=== PATIENT | female | born 1955 | race Caucasian/White ===

== ENCOUNTER 2020-11-14 09:13 | Inpatient (IN) | payer BC, OTHER ==
[~2020-11-14] VITALS: Ht 157.5 cm; Wt 105.7 kg
--- NOTE | ~2020-11-14 | O ---
[facility] [place] [address] OPERATIVE REPORT Name: BEKAH GARCIA Room #: 440-P ADM IN M.R.#: [id number] Admission: 11/14/20 Attend Phys: Tyelr Cabral MD Discharge: Date of : 57 Report #: [id number] THIS REPORT FOR: cc: FAM - No family physician/PCP FAM - No family physician/PCP Tyler Cabral MD ~ DATE OF SERVICE: 11/17/2020 PREOPERATIVE DIAGNOSIS: Right septic ankle and subtalar arthritis. POSTOPERATIVE DIAGNOSIS: Right septic ankle and subtalar arthritis. PROCEDURES: 1. Right ankle arthroscopic irrigation and debridement. 2. Right subtalar joint open irrigation and debridement. SURGEON: Dr. Tyler Cabral. ORACLE DATA WAREHOUSE DEVELOPER: Gabriela Abreu. ANESTHESIA: General. ESTIMATED BLOOD LOSS: Minimal. DRAINS: One Hemovac drain was placed. TOURNIQUET TIME: 45 minutes. DESCRIPTION OF PROCEDURE: The patient brought to the operating room where she was placed under general anesthesia. Once under adequate general anesthesia, her right lower extremity was placed into an arthroscopic thigh support. The right lower extremity was then prepped and draped in sterile manner. The extremity was elevated and tourniquet placed to 300 mmHg. The patient's previous anteromedial and anterolateral arthroscopic portals were utilized and the arthroscopic equipment was then placed. The joint appeared much blind cleaner than on her previous irrigation and debridement. 3 liters of normal saline solution were then run through the joint arthroscopically and subsequently the extremity was removed from the arthroscopic thigh support and an extension of the patient's lateral wound was made to extend to the subtalar joint. Dissection was carried down to the subtalar joint, was then opened and any hematoma from the joint was removed. A pulsatile lavage was then placed there and 3 liters of normal saline solution were run through the subtalar joint as well with the pulsatile lavage. Once complete, a medium Hemovac drain was placed into the subtalar joint. The wounds were irrigated copiously and closed with 2-0 nylon sutures in the skin. The wounds were dressed with Xeroform, [address] [address] OPERATIVE REPORT Name: RADHABEKAH Room #: 440-P [facility] IN .R.#: [id number] Admission: 11/14/20 Attend Phys: Tyler Cabral MD Discharge: Date of : 57 Report #: [id number], and sterile soft compressive dressing was placed. Tourniquet was let down approximately 45 minutes. Toes were pink and warm with good capillary refill. There were no complications from the procedure. The patient tolerated the procedure well and went to recovery room without incident. By: 1139 [id number] Tyler Cabral MD /nt
[~2020-11-14 09:13] MED LIST: ACTOS 45 MG45 M2 PO; ASA81BEC PO; ASPIRIN EC81 M1 PO; CLARITIN10 M3 PO; GLUCOPHAGE1000 MG PO; GLYBURIDE 5 MG T5 M1 PO; LIPITOR 20 MG T20 M1 PO; LISINOPRIL-HCT1 EAC1 PO; OSTEO BI-FLEX1 EAC2 PO; PROBIOTIC1 EAC7 PO; STOOL SOFTENER100 M1 PO; VISION FORMULA1 EACH PO
[2020-11-14 11:05] VITALS: BP 162/78
[2020-11-14 15:28] VITALS: BP 157/86
--- NOTE | 2020-11-14 15:33 | NUR ---
ASSESSMENT: CM REVIEWED CHART AND SPOKE WITH PATIENT AND HER BROTHER WHO IS AT THE BEDSIDE. PT IS S/P RIGHT ANKLE DEBRIDEMENT WITH SYNOVECTOMY. PT REPORTS SHE LIVES IN A HOUSE WITH HER DAUGHTER. PT REPORTS HAVING 4 STEPS TO ENTER THE HOME AND REPORTS ABOUT ANOTHER 4 STEPS WITH HANDRAILS HER BEDROOM. PT STATES SHE CAN SLEEP ON THE COUCH ON THE MAIN LEVEL IF NEEDED. PT REPORTS SHE HAS A CANE AND WALKER AT HOME TO ASSIST WITH AMBULATION. PT STATES SHE HAS NO HISTORY OF HOME HEALTH CARE OR POST ACUTE CARE. CM WILL CONTINUE TO FOLLOW TO ASSIST NEEDED.
--- NOTE | 2020-11-14 18:54 | NUR ---
PATIENT ADMIT UNIT FROM OR AT 1500. A/O X4. HADF RIGHT ANKLE I & D WITH HEMO VAC. PATIENT DENIES PAIN. ON RA. VSS. CHRISTINE KEEP MONITOR.
[2020-11-14 20:00] VITALS: BP 150/71
--- NOTE | 2020-11-15 03:37 | NUR ---
ASSUMED PT CARE AT 1900.PT C/O PAIN ON HER R ANKLE,MANAGED WITH SANJANA TO HER R ANKLE C/D/I WITH A HEMOVAC IN PLACE.PT'S O2 SAT AT START OF SHIFT WAS BELOW 90,PT WAS PUT ON 2L/NC,O2 SAT UP TO 96%.PT SLEPING ON HER BED AT THIS TIME,CALL LIGHT WITHIN REACH.
[2020-11-15 05:54] LABS: HEMOGLOBIN 9.5 gm/dL (12.0-15.0); MCH 25.8 pg (26.0-34.0); MCHC 31.9 g/dL (28.0-37.0); MCV 80.8 fL (80.0-100.0); PLATELET COUNT 464 thou/uL (150-400); RBC 3.71 mil/uL (4.20-5.00); RDW 22.2 % (10.5-14.5); WBC 5.2 thou/uL (4.0-11.0)
[2020-11-15 06:50] LABS: ALBUMIN 2.2 g/dL (3.4-5.0); CALCIUM 8.6 mg/dL (8.5-10.1); CREATININE 1.4 mg/dL (0.6-1.0); TOTAL BILIRUBIN 0.3 mg/dL (0.2-1.0); TOTAL PROTEIN 7.4 g/dL (6.4-8.2)
[2020-11-15 07:42] LABS: ABSOLUTE NEUTROPHILS 4.3 thou/uL (1.4-8.2); ANISOCYTOSIS 2+; OVALOCYTES FEW; TEARDROPS OCCASIONAL
[2020-11-15 07:45] VITALS: BP 141/87
--- NOTE | 2020-11-15 09:48 | NUR ---
Assumed care of pt at 0700. Pt a&ox4. Dressing c/d/i. Hemovac drain in place. Minimal output. MRI ordered this am. Bilateral LE edema. IV antibiotics infusing. Diet advanced. Call light within reach. Pt calls appropriately. Will continue to monitor.
--- NOTE | 2020-11-15 13:58 | NUR ---
ON-GOING ASSESSMENT: CM REVIEWED CHART. PLANS ARE FOR PATIENT TO HAVE ANOTHER I&D ON FRIDAY. PT REMAINS ON IV ANBX AND CULTURES ARE PENDING. CM DISCUSSED SNF OPTIONS VS HOME WITH HOME HEALTH PENDING PROGRESS. CM PROVIDED PATIENT WITH A LIST OF SNF FACILITIES THAT ARE IN NETWORK WITH HER INSURANCE AND SHE STATES SHE LIKELY PREFERS TO GO SOMEWHERE CLOSER TO HER HOME IN [facility] IF SNF IS REQUIRED BUT WANTS TO DISCUSS WITH HER DAUGHTER. PT ALSO HAS NO PREFERENCE OF HH COMPANY AND CM ATTEMPTED TO FIND A HOME HEALTH IN HER AREA THAT ACCEPTS HER INSURANCE. REFERRALS FOR HH WERE SENT TO [facility] AND [facility] AND AWAITING INPUT AT THIS TIME.
--- NOTE | 2020-11-15 14:13 | NUR ---
WOUND CONSULT; UPON ASSESSMENT A WOUND WAS IDENTIFIED TO THE RIGHT BUTTOCK. THE WOUND WAS FROM A PRIOR ADMISSION. THE WOUND HAS FRAYED EDGES CONSISTANT WITH FRICTION BUT CANNOT R/O PRESSURE. THE WOUND IS SUPERFICIAL AND HAS NO S/S OF INFECTION. RECOMMENDATIONS; FOR NOW USE ZGUARD BID/PRN DISCUSSED WITH CRISTA
--- NOTE | 2020-11-15 14:29 | O ---
[facility] [place] [address] OPERATIVE REPORT Name: BEKAH GARCIA Room #: 440-P ADM IN M.R.#: [id number] Admission: 11/14/20 Attend Phys: Tyler Cabral MD Discharge: Date of : 57 Report #: [id number] THIS REPORT FOR: cc: FAM - No family physician/PCP FAM - No family physician/PCP Tyler Cabral MD ~ DATE OF SERVICE: 11/14/2020 PREOPERATIVE DIAGNOSES: Right septic ankle arthritis and postoperative wound infection. POSTOPERATIVE DIAGNOSES: Right septic ankle arthritis and postoperative wound infection. PROCEDURES: 1. Right ankle arthroscopic debridement with synovectomy. 2. Right ankle irrigation and debridement lateral wound. SURGEON: Dr. Tyler Cabral. GROCERY SUPERVISOR: Gabriela Cerna. ANESTHESIA: General. ESTIMATED BLOOD LOSS: Minimal. DRAINS: One Hemovac drain was placed in the wound. TOURNIQUET TIME: One hour. DESCRIPTION OF PROCEDURE: The patient brought to the operating room where she was placed under general anesthesia. Once under adequate general anesthesia, her right lower extremity was placed into an arthroscopic thigh support. The right lower extremity was then prepped and draped in sterile manner. The extremity was elevated without exsanguination and tourniquet placed to 300 mmHg. An anteromedial and anterolateral arthroscopic portal was made in the usual fashion. Examination of the joint noted significant synovitis throughout the joint. The purulent fluid from the portal was cultured. The joint was then debrided extensively with a synovectomy performed with an arthroscopic shaver. Approximately 4 liters of normal saline solution was run through the joint with the arthroscopy. Once complete irrigation had been completed, the extremity was removed from the arthroscopic thigh support. The lateral wound was opened and debrided with a 15 blade. This did extend down to the fibula and a rongeur. The wound was then closed with 2-0 nylon suture in a simple stitch manner. The wound was dressed with Xeroform, 4 x 4s, and sterile soft compressive dressing [address] [address] OPERATIVE REPORT Name: BEKAH GARCIA Room #: 440-P [facility] IN M.R.#: [id number] Admission: 11/14/20 Attend Phys: Tyler Cabral MD Discharge: Date of : 57 Report #: [id number] was placed. Please note that prior to removing the arthroscopic equipment, a Hemovac drain was placed in the medial portal. Tourniquet was let down at approximately 1 hour. Toes were pink and warm with good capillary refill. There were no complications from the procedure. The patient tolerated the procedure well and went to recovery room without incident. <ELECTRONICALLY SIGNED> By: Tyler Cabral MD 11/15/20 1429 [id number] Tyler Cabral MD /nt
[2020-11-15 16:40] VITALS: BP 129/61
[2020-11-15 18:58] VITALS: BP 130/60
[2020-11-16 03:36] VITALS: BP 162/80
--- NOTE | 2020-11-16 05:29 | NUR ---
ASSUMED CARE AT 1900. APPROX 2029, PT C/O FEELING VERY HOT AND WEAK, IMPROVED WITH FAN ON AND SITTING UPRIGHT FOR A SHORT TIME. C/O MILD DISCOMFORT IN RIGHT ANKLE, UTILIZED ICE PACK OVERNIGHT. MINIMAL OUTPUT FROM HEMOVAC. NOTED SOME FINE CRACKLES DURING PULM ASSESSMENT, ENCOURAGED PT TO USE I.S. MORE FREQUENTLY TO PREVENT PNA; SHE ALSO GETS SOB WITH EXERTION, EVEN JUST SITTING UP TO EDGE OF BED. DRESSING C/D/I OVERNIGHT; APPLIED FRESH BARRIER CREAM TO RIGHT BUTTOCK ABRASION. NO OTHER CONCERNS, WILL CONTINUE TO MONITOR.
[2020-11-16 07:15] VITALS: BP 168/79
[2020-11-16 10:24] LABS: HEMATOCRIT 31.9 % (37.0-47.0); HEMOGLOBIN 10.2 gm/dL (12.0-15.0); MCH 25.7 pg (26.0-34.0); MCHC 31.9 g/dL (28.0-37.0); MCV 80.6 fL (80.0-100.0); RBC 3.96 mil/uL (4.20-5.00); RDW 22.5 % (10.5-14.5); WBC 5.2 thou/uL (4.0-11.0)
[2020-11-16 10:37] LABS: CALCIUM 8.8 mg/dL (8.5-10.1); CREATININE 1.3 mg/dL (0.6-1.0); MAGNESIUM 1.9 mg/dL (1.8-2.4); POTASSIUM 4.3 mmol/L (3.5-5.1)
--- NOTE | 2020-11-16 13:49 | NUR ---
ON-GOING ASSESSMENT: CM REVIEWED CHART. PLANS ARE FOR PATIENT TO HAVE ANOTHER I&D TOMORROW. PT REMAINS ON IV ANBX. PER NOTES, LIKELY NEED FOR PROLONGED IV ANBX. CM REVIEWED WITH PATIENT CM PROVIDED HER A SNF LIST YESTERDAY. PTS IS CURRENTLY IN A SNF IN [place] AND SHE REPORTS SHE MAY CONSIDER GOING THERE OR SOMEWHERE NEAR [facility]. SHE WANTS TO DISCUSS WITH HER BROTHER SAYDA AND WILL LET CM KNOW OPTIONS TOMORROW AM. CM WILL CONTINUE TO FOLLOW.
[2020-11-16 15:45] VITALS: BP 171/76
--- NOTE | 2020-11-16 18:27 | NUR ---
PT A&OX4, VSS, DENIES PAIN. COVID TEST TAKEN FOR I&D TOMORROW. DRESSING CHANGE DONE TO RIGHT FOOT/ANKLE AND DOCTOR IN TO SEE WOUND, STITCHES, SCANT SEROSANGUNEOUS DRAINAGE. PATIENT TOLERATING DIET, IV PATENT SALINE LOCKED. PATIENT IN RECLINER MOST OF DAY. NO SIGNS OF DISTRESS. WILL CONTINUE TO MONITOR.
[2020-11-16 21:54] VITALS: BP 172/83
[2020-11-17 06:29] LABS: HEMATOCRIT 33.6 % (37.0-47.0); HEMOGLOBIN 10.8 gm/dL (12.0-15.0); MCH 25.9 pg (26.0-34.0); MCV 80.8 fL (80.0-100.0); RBC 4.15 mil/uL (4.20-5.00); RDW 22.6 % (10.5-14.5); WBC 5.2 thou/uL (4.0-11.0)
--- NOTE | 2020-11-17 06:30 | NUR ---
RECIEVED CARE OF THIS PATIENT AT 1900. PATIENT ALERT AND ORIENTED X4. UP WITH WALKER AND PIVOTS TO AND FROM CHAIR/BED AND BSC. DENIES PAIN. L ANKLE WRAPPED WITH DENICE. ACCUCHECK WAS 202, COVERAGE WITH [facility]. NPO [place]CE [place] FOR AND I&D OF ANKLE. SLEPT OFF AND ON DURING NIGHT.
[2020-11-17 06:46] LABS: CALCIUM 9.1 mg/dL (8.5-10.1); CREATININE 1.3 mg/dL (0.6-1.0); MAGNESIUM 1.8 mg/dL (1.8-2.4); POTASSIUM 3.6 mmol/L (3.5-5.1)
[2020-11-17 07:37] VITALS: BP 174/88
--- NOTE | 2020-11-17 12:13 | NUR ---
Assumed care of pt at 0700. Pt a&ox4. Pt having surgey today for I&D of rt ankle. Dressing c/d/i. Vanco trough critical. Provider notified. Denies pain. Call light within reach. Will continue to monitor.
--- NOTE | 2020-11-17 15:01 | NUR ---
ON-GOING ASSESSMENT: CM REVIEWED CHART. PT IS TO HAVE ANOTHER I&D TODAY. CM MET WITH PATIENT AND DISCUSSED SNF. PT IS AGREEABLE FOR SNF SHE WILL LIKELY NEED PROLONGED IV ANBX. PT CURRENTLY ON VANC Q12. PT REQUESTED REFERRAL TO [facility]. CM FAXED REFERRAL AND SPOKE WITH MEJIA IN ADMISSIONS WHO REPORTS THEY CAN LIKELY ACCEPT PT PENDING FINAL IV ANBX RECS. THEY CAN ACCEPT HER ON CURRENT REGIME ON IV VANC Q12 BUT WILL HAVE TO VERIFY IF ANBX CHANGES. MEJIA IN ADMISSIONS AT [facility] IS GOING TO START THE INSURANCE AUTH REQUEST. IF PATIENT IS STABLE OVER THE WEEKEND YOU CAN CONTACT MEJIA IN ADMISSIONS AT [facility] [phone] IN ATTEMPTS TO SEE IF THEY RECEIVED AUTH OVER THE WEEKEND. IF AUTH IS RECEIVED SHE WILL HELP FACILITATE DISCHARGE. CM WILL CONTINUE TO FOLLOW TO ASSIST NEEDED.
[2020-11-17 16:00] VITALS: BP 154/82
--- NOTE | 2020-11-17 17:53 | HC ---
[facility] [place] [address] CONSULTATION Name: BEKAH GARCIA Room #: 440-P ADM IN M.R.#: [id number] Admission: 11/14/20 Attend Phys: Tyler Cabral MD Discharge: Date of : 56 Report #: [id number] THIS REPORT FOR: cc: FAM - No family physician/PCP FAM - No family physician/PCP Zain Marshall MD ~ DATE OF SERVICE: 11/15/2020 INFECTIOUS DISEASE CONSULTATION REASON FOR CONSULTATION: I was asked to evaluate concerning right ankle surgical site infection. HISTORY OF PRESENT ILLNESS: The patient is a 65-year-old with history of right ankle fracture in 04/2020. This was a closed fracture with a fair amount of swelling. About 2 weeks after her injury where she had slipped on dryer sheet at her home. She underwent ORIF without complication. Initially was healing well until June when she started having drainage from her incision laterally. Diagnosed with surgical site infection, underwent debridement. She was treated with oral antibiotics after this. Seemed to do well until about 3 weeks ago when she had acute onset of pain and development of drainage, taken to the operating room, after induction of debridement revealed MRSA. Hardware was taken out and placed on vancomycin. This was on 11/02/2020. Subsequently, had a wound VAC placed and she was receiving IV antibiotic therapy in the outpatient clinic. Transfers now for Dr. Cabral to review for possible surgical intervention. She was taken to surgery yesterday for further debridement. MRI scan showed evidence of further joint space issues and osteomyelitis. Plan is to go back to surgery in 2 days for further surgical debridement. The patient has underlying diabetes. No known osteoporosis. She has been on no immunosuppressive medications. REVIEW OF SYSTEMS: A 14-point review of system was negative other than what has been described above. She is a past smoker. She has no known coronary or peripheral artery disease. Denies any claudication symptoms. ALLERGIES: PENICILLIN WHERE SHE PASSED OUT WHEN SHE WAS A YOUNG CHILD, DOES NOT KNOW IF SHE HAS BEEN ON ANY OTHER PENICILLIN DERIVATIVES. SHE DOES TOLERATE CEPHALOSPORINS. MEDICATIONS: As noted on her MAR including vancomycin. 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 [address] [address] CONSULTATION Name: BEKAH GARCIA Room #: 440-P [facility] IN M.R.#: [id number] Admission: 11/14/20 Attend Phys: Tyler Cabral MD Discharge: Date of : 57 Report #: [id number] FAMILY HISTORY: Negative for tuberculosis. SOCIAL HISTORY: Nonsmoker, no significant alcohol intake. Now retired on disability. PHYSICAL EXAMINATION: VITAL SIGNS: She was afebrile and hemodynamically stable. GENERAL: Alert and cooperative, in no acute distress. SKIN: Without rash or decubitus. EXTREMITIES: Right ankle was in surgical wrap and DENICE wrapped. Hemovac in place. Toes were warm to the touch. Good capillary refill. Sensation to fine touch within normal limits. Movement in her toes was within normal limits. Pulses were diminished in the lower leg, noted 2+ femoral, 1+ popliteal. EYES: Without scleral icterus. MOUTH: Without mucositis. NECK: Supple, no thyromegaly or mass. LUNGS: Clear. HEART: Regular, without murmur, gallop or rub. ABDOMEN: Obese, soft, nontender, no hepatosplenomegaly or mass appreciated. GENITORECTAL: Not performed. BACK: Nontender. PSYCHIATRIC: Mood without anxiety or depression. NEUROLOGIC: Cranial nerves intact. Strength in upper and lower extremities are within normal limits. LABORATORY STUDIES: Reviewed. Microbiology reviewed. IMPRESSION: 1. This is a 65-year-old underlying diabetes with surgical site infection, right ankle following open reduction and internal fixation in April of this past year. Cultures have revealed methicillin-resistant Staphylococcus aureus. The patient has evidence of progressive disease and underlying osteomyelitis as noted on her MRI scan, which were reviewed. 2. Anemia. 3. Acute kidney injury. RECOMMENDATIONS: We will continue vancomycin. Check levels. Obtain outside microbiology reports. Await further surgical debridement. __ her ankle yet to be determined. I am concerned with the amount of destruction seen on her MRI scan. We will also check vascular studies. Control blood glucose. <ELECTRONICALLY SIGNED> By: Zain Marshall MD 11/17/20 [id number] Zain Marshall MD /nt
[2020-11-17 18:11] LABS: CALCIUM 8.7 mg/dL (8.5-10.1); CREATININE 1.2 mg/dL (0.6-1.0); POTASSIUM 4.8 mmol/L (3.5-5.1)
--- NOTE | 2020-11-17 19:49 | NUR ---
VAT CONSULTED FOR PICC. 4FR SL PICC TO RIGHT UPPER BASILIC VEIN. TRIMMED 41 CM, 0 CM EXTERNAL. TIP LOCATION VERIFIED WITH 3CG. PT TOLERATED WELL. RELEASED FOR USE, PER HOSPITAL POLICY.
[2020-11-17 20:34] VITALS: BP 148/81
[2020-11-18 03:55] VITALS: BP 146/76
--- NOTE | 2020-11-18 04:46 | NUR ---
RECIEVED CARE OF THIS PATIENTAT 1899. PATIENT ALERT AND ORIENTED X4. SINGLE LUMEN PICC LINE PLACED TONIGHT IN UPPER R ARM. ACCUCHECK WAS 269, ORAL COVERAGE GIVEN. DRESSING ON R FOOT INTACT. UP TO BSC BY PIVOTTING ON GOOD LEG. HEMOVAC STILL IN PLACE. REMAINS IN ISO FOR MRSA IN WOUND.SLEPT OFF AND ON DURING NIGHT. DENIES PAIN.
[2020-11-18 06:11] LABS: ABSOLUTE NEUTROPHILS 5.8 thou/uL (1.4-8.2); BASOPHILS 0.7 % (0.0-2.0); HEMATOCRIT 29.1 % (37.0-47.0); HEMOGLOBIN 9.2 gm/dL (12.0-15.0); LYMPHOCYTES 10.7 % (24.0-44.0); MCH 25.6 pg (26.0-34.0); MCHC 31.7 g/dL (28.0-37.0); MCV 80.8 fL (80.0-100.0); MONOCYTES 4.1 % (1.0-8.0); PLATELET COUNT 399 thou/uL (150-400); POLYS 84.5 % (36.0-66.0); RDW 22.3 % (10.5-14.5); WBC 6.9 thou/uL (4.0-11.0)
[2020-11-18 08:13] VITALS: BP 146/77
--- NOTE | 2020-11-18 10:07 | NUR ---
Assumed care of pt at 0700. Pt a&ox4. Pt denies pain. Dressing c/d/i. Up to bedside commode with assist. Non-weight bearing RLE. PICC line place last night. Call light within reach. Will continue to monitor.
--- NOTE | 2020-11-18 12:56 | HC ---
[facility] [place] [address] CONSULTATION Name: BEKAH GARCIA Room #: 440-P ADM IN M.R.#: [id number] Admission: 11/14/20 Attend Phys: Tyler Cabral MD Discharge: Date of : 56 Report #: [id number] THIS REPORT FOR: cc: FAM - No family physician/PCP FAM - No family physician/PCP Chad Cordero MD ~ DATE OF SERVICE: 11/15/2020 CHIEF COMPLAINT: Surgical wound to the right ankle. HISTORY OF PRESENT ILLNESS: This is a 65-year-old female patient with a history of a right ankle fracture, status post open reduction and internal fixation. She sustained a fracture in 04/2020, underwent open reduction and internal fixation in 05/2020. She has had a slow healing and has undergone debridement and hardware removal on 11/02/2020. I have been asked to see her with regard to wound care. The patient denies any pain associated with this at this time. PAST MEDICAL HISTORY: Positive for history of the septic right ankle arthritis, hypertension, hyperlipidemia and type 2 diabetes mellitus. ALLERGIES: PENICILLIN. MEDICATIONS: Include aspirin, atorvastatin, probiotic, docusate sodium, glucosamine, glyburide, lisinopril, loratadine, metformin, pioglitazone, and a multivitamin. FAMILY HISTORY: Noncontributory. REVIEW OF SYSTEMS: CONSTITUTIONAL: The patient denies fever, chills or weight loss. NEUROLOGICAL: The patient denies focal weakness, numbness or tingling. EYES: The patient denies visual changes, redness, or drainage. ENT: The patient denies earache, nasal drainage, sore throat. CARDIOVASCULAR: The patient denies chest pain, palpitations or diaphoresis. PULMONARY: The patient denies cough or shortness of breath. GASTROINTESTINAL: The patient denies nausea, vomiting or abdominal pain. ORTHOPEDIC: The patient denies pain, but has a surgical incision to the right ankle. Other systems in a 14-point review of systems are negative. PHYSICAL EXAMINATION: VITAL SIGNS: At this time include blood pressure 141/87, respiratory rate 16, heart rate of 72. GENERAL: This is a somewhat of a well-developed, well-nourished female patient [address] [address] CONSULTATION Name: BEKAH GARCIA Room #: 440-P ADM IN M.R.#: [id number] Admission: 11/14/20 Attend Phys: Tyler Cabral MD Discharge: Date of : 57 Report #: [id number] who appears to be in no distress. HEENT: Head normocephalic. Nose and throat clear. NECK: Supple. ABDOMEN: Soft. Bowel sounds present. EXTREMITIES: Lower extremities demonstrate surgical incisions both the lateral and medial ankle on the right side. There is a first drain site on the dorsal medial aspect of the right foot. Skin color is normal with normal capillary refill. CLINICAL IMPRESSION: 1. Surgical wound to the right ankle, status post right ankle arthroscopic debridement and synovectomy. 2. Type 2 diabetes mellitus. 3. Morbid obesity. 4. History of hyperlipidemia. 5. Hypertension. RECOMMENDATIONS: At this point in time, we will recommend silver alginate, ABD, Kerlix, Maximilian to the right ankle to be changed daily. The patient indicates that she is scheduled for another surgical debridement on Friday. At this point in time, I would hold off on wound VAC. I think we would continue to follow with just the local dressing changes at present. She is nonweightbearing. She has tried using a walker today with physical therapy, is going to try a knee roller to see which would be easier for her. Continue with medical management of her hypertension, diabetes with nutrition to maximize wound healing. I appreciate being asked to see her in consultation. <ELECTRONICALLY SIGNED> By: Chad Cordero MD 11/18/20 1256 [id number] Chad Cordero MD /nt
[2020-11-18 18:30] VITALS: BP 130/66
[2020-11-18 20:00] VITALS: BP 111/51
[2020-11-19 03:30] VITALS: BP 132/55
--- NOTE | 2020-11-19 03:53 | NUR ---
PT TRANSFERRING TO BEDSIDE COMMODE WITH STANDBY ASSIST AND IS TOLERATING FAIR. PERCOCET PROVIDING PAIN RELIEF. RESTING COMFORTABLY. NO NEEDS VOICED. CALL LIGHT WITHIN REACH. FREQUENT OBSERVATION.
[2020-11-19 07:20] VITALS: BP 149/76
[2020-11-19 07:51] LABS: ABSOLUTE NEUTROPHILS 3.7 thou/uL (1.4-8.2); BASOPHILS 2.2 % (0.0-2.0); EOSINOPHILS 6.2 % (0.0-3.0); HEMATOCRIT 25.2 % (37.0-47.0); HEMOGLOBIN 8.3 gm/dL (12.0-15.0); LYMPHOCYTES 29.4 % (24.0-44.0); MCH 26.7 pg (26.0-34.0); MCHC 32.9 g/dL (28.0-37.0); MCV 81.2 fL (80.0-100.0); MONOCYTES 4.5 % (1.0-8.0); PLATELET COUNT 353 thou/uL (150-400); POLYS 57.7 % (36.0-66.0); RBC 3.11 mil/uL (4.20-5.00); RDW 22.2 % (10.5-14.5); WBC 6.4 thou/uL (4.0-11.0)
[2020-11-19 08:00] LABS: CALCIUM 8.3 mg/dL (8.5-10.1); CREATININE 1.5 mg/dL (0.6-1.0); POTASSIUM 3.6 mmol/L (3.5-5.1)
--- NOTE | 2020-11-19 11:50 | NUR ---
Assumed care of pt at 0700. Pt a&ox4. Denies pain. Dressing c/d/i. SBA to bedside commode. Call light within reach. Fall precautions in place. Will continue to monitor.
[2020-11-19 13:07] LABS: ANISOCYTOSIS 3+
[2020-11-19 16:10] VITALS: BP 148/61
--- NOTE | 2020-11-19 17:31 | NUR ---
ASSUMED PT CARE AROUND 1300. PT ALERT X ORIENTED X4. 2L/O2/NC.NON WT BEARING ON RT LE, BUT PIVOT ON COMMODE. HAS A HEMOVAC DRAIN. NO C/O PAIN. MRSA IN THE WOUND. IV RT UPPER ARM PICC WITH SINGLE LUMEN. HAD A BOWEL MOVEMENT LATE AFTERNOON TODAY. FALL PRECT IN PLACE. CALL LIGHT IN REACH, WILL CALL FOR HELP. SUPPOSED TO GO TOMORROW. SHIFT REPORT GIVEN TO CRISTA PORTER. WILL CONT TO MONITOR.
[2020-11-19 19:45] VITALS: BP 159/66
[2020-11-20 02:06] LABS: GLYCOHEMOGLOBIN (HGB A1C) 7.8 % (4.8-5.6)
[2020-11-20 04:02] LABS: ABSOLUTE NEUTROPHILS 3.9 thou/uL (1.4-8.2); BASOPHILS 1.3 % (0.0-2.0); EOSINOPHILS 8.7 % (0.0-3.0); HEMATOCRIT 25.9 % (37.0-47.0); HEMOGLOBIN 8.5 gm/dL (12.0-15.0); MCH 26.5 pg (26.0-34.0); MCHC 32.7 g/dL (28.0-37.0); MCV 81.1 fL (80.0-100.0); MONOCYTES 5.7 % (1.0-8.0); PLATELET COUNT 311 thou/uL (150-400); POLYS 63.3 % (36.0-66.0); RDW 22.3 % (10.5-14.5); WBC 6.1 thou/uL (4.0-11.0)
[2020-11-20 04:16] LABS: ALBUMIN 2.1 g/dL (3.4-5.0); CALCIUM 8.5 mg/dL (8.5-10.1); CREATININE 1.3 mg/dL (0.6-1.0); POTASSIUM 3.7 mmol/L (3.5-5.1); TOTAL BILIRUBIN 0.2 mg/dL (0.2-1.0); TOTAL PROTEIN 6.7 g/dL (6.4-8.2)
--- NOTE | 2020-11-20 07:34 | NUR ---
PT AOX4. PT DENIES PAIN AND SOB WHILE ALTERNATING BETWEEN ROOM AIR AND 2L O2 VIA NC. PT TOLERATING PO INTAKE OF FLUIDS AND CARB CONTROLLED DIET WITHOUT ISSUE. PT WITHOUT NAUSEA OR EMESIS. PT AMBULATING TO BEDSIDE COMMODE WITH WALKER AND X1 ASSIST, RESTING IN BED OTHERWISE. FREQUENT REPOSITIONING ENCOURAGED WHILE IN BED, PT NOTED TO SHIFT INDEPENDENTLY WHILE IN BED. PT ENCOURAGED TO NOTIFY STAFF FOR ALL NEEDS, CALL LIGHT WITHIN REACH, BED ALARM ON, BED LOCKED IN LOWEST POSITION, FREQUENT MONITORING WILL CONTINUE.
[2020-11-20 07:35] VITALS: BP 142/63
--- NOTE | 2020-11-20 11:14 | NUR ---
ASSUMED [PT CARE THIS AM. PT VSS, A&OX4. PT REPORTING NO PAIN. HEMOVAC DRAINING MINIMAL. BARRIER CREAM PLACED ON BOTTOM.RIGHT ANKLE ELEVATED. EDEMA NOTED IN BILATERAL LOWER EXTREMETIES. BLOOD SUGAR LOW THIS AM, RESPONDED WELL TO MEDS AND JUICE GIVEN. PICC LINE PATENT. DRY SKIN NOTED ON RIGHT LEG. UP TO BEDSIDE COMMODE WITH ASSIST. PT CALLS APPROPRIATELY WHEN NEEDED, FALL PRECAUTIONS IN PLACE.
--- NOTE | 2020-11-20 13:31 | NUR ---
Assess due to length of stay, Extreme class III obesity 42.6. Admit with septic ankle which has required I/D x 2. Also has friction to right buttock, and wound care has assessed. Hx diabetes and takes oral agents. A1C 7.8-mildly elevated. Appetite is good. Pt reports recent wt gain of about 30 lb since "broke ankle in Apr". Reviewed carb control diet and portion control. 1800 carb control diet appropriate. Low nutrition risk
--- NOTE | 2020-11-20 16:11 | NUR ---
on-going assessment: BRET REVIEWED CHART AND SPOKE WITH ANTONIETTA BA FROM [facility]. SHE REPORTS SHE WAS ATTEMPTING TO SEEK AUTH FOR PATIENT FOR SNF BUT THEN FOUND OUT THAT SHE DOES NOT HAVE A SNF BENEFIT THROUGH HER INSURANCE. CM ATTEMPTED TO CALL INSURANCE BUT WAS RE-ROUTED AND UNABLE TO REACH AT THIS TIME. PT REMAINS ON IV ANBX AND HAS WOUND VAC. 5N CONSULT WAS PLACED FOR PATIENT AND AWAITING THEIR INPUT. CM ALSO MET WITH PATIENT TO DISCUSS OPTIONS. SHE WOULD LIKE TO SEE IF 5N IS AN OPTION WITH HER INSURANCE AND IS ALSO AGREEABLE FOR LTAC REFERRAL AND PREFERS [facility] SINCE IT IS THE CLOSEST. CM FAXED REFERRAL TO [facility] AND SPOKE WITH MARLI. AWAITING FURTHER INPUT FROM THEN BRET WILL UPDATE LIASON AT [facility]. BRET WILL CONTINUE TO FOLLOW TO ASSIST NEEDED.
[2020-11-20 19:27] VITALS: BP 131/53
--- NOTE | 2020-11-21 05:18 | NUR ---
RECIEVED CARE OF THIS PATIENT AT 1900. PATIENT ALERT AND ORIENTED X4. UP TO BSC WITH SBA. DRESSING ON R FOOT D/I. DENIES PAIN. ACCUCHECK WAS 188. NO COVERAGE GIVEN. PICC IN [facility]. SLEPT OFF AND ON DURING NIGHT.
[2020-11-21 06:59] LABS: HEMATOCRIT 26.1 % (37.0-47.0); HEMOGLOBIN 8.6 gm/dL (12.0-15.0); MCH 26.6 pg (26.0-34.0); MCHC 32.9 g/dL (28.0-37.0); MCV 80.8 fL (80.0-100.0); RBC 3.22 mil/uL (4.20-5.00); RDW 22.1 % (10.5-14.5); WBC 5.8 thou/uL (4.0-11.0)
[2020-11-21 07:05] VITALS: BP 146/72
[2020-11-21 07:13] LABS: CALCIUM 8.3 mg/dL (8.5-10.1); CREATININE 1.1 mg/dL (0.6-1.0); POTASSIUM 3.6 mmol/L (3.5-5.1)
--- NOTE | 2020-11-21 11:21 | NUR ---
ASSUMED PT CARE THIS AM. PT VSS, A&OX4. PT PLEASANT, MAKES NEEDS KNOWN. PICC PATENT. EDEMA NOTED IN THE LOWER EXTREMETIES, ELEVATING IN BED. ON ROOM AIR. UP TO BEDSIDE COMMODE WITH ASSIST, REMAINS CONTINENT. FALL PRECAUTIONS ARE IN PLACE. REPORTS NO PAIN.
--- NOTE | 2020-11-21 11:36 | NUR ---
ON-GOING ASSESSMENT: CM REVIEWED CHART AND SPOKE WITH LIASON FROM WHO REPORTS THEY CAN ACCEPT PATIENT PENDING INSURANCE AUTH. THEY HAVE SUBMITTED FOR INSURANCE AUTH AND AWAITING DECISION AT THIS TIME. PT CONTINUES WITH WOUND VAC WELL IV ANBX. CM NOTIFIED BEDSIDE RN THAT COVID TEST WILL NEED TO BE COMPLETED. CM WILL CONTINUE TO FOLLOW TO ASSIST NEEDED.
[2020-11-21] MEDS ORDERED: ASPIRIN EC325 M1 PO (13:33)
[2020-11-21] MEDS ORDERED: PROTONIX 20 MG20 M1 PO (13:33)
[2020-11-21] MEDS ORDERED: ACIDOPHILUS1 EAC4 PO (13:33)
[2020-11-21] MEDS ORDERED: NORVASC5 MG PO (13:33)
--- NOTE | 2020-11-21 14:40 | NUR ---
ON-GOING ASSESSMENT: CM REVIEWED CHART AND SPOKE WITH LIASON FROM WHO REPORTS THEY HAVE RECEIVED INSURANCE AUTH AND PT CAN COME TODAY IF STABLE. CM NOTIFIED BEDSIDE WHO IS NOTIFYING [facility]. AWAITING TO SEE IF PATIENT CAN GO TO TODAY PER ATTENDING. COVID TEST COMPLETED AND CURRENTLY PENDING. CM WILL CONTINUE TO FOLLOW.
--- NOTE | 2020-11-21 17:12 | NUR ---
PATIENT HAS BEEN SEEN FOR REHAB CONSULT AND IS APPROPRIATE FOR ACUTE REHAB ADMISSION. AUTHORIZATION FOR ACUTE REHAB RECEIVED THIS DATE FOR ADMISSION TO [address] [place] [address] ON 11/22/20. SERVICE OPERATIONS MANAGER AWARE AND IN AGREEMENT WITH PLAN. THANK YOU FOR THIS REFERRAL.
[2020-11-21 20:20] VITALS: BP 139/67
[2020-11-22 02:45] VITALS: BP 165/74
--- NOTE | 2020-11-22 08:09 | NUR ---
RECIEVED CARE OF THIS PATIENT AT 1900. PATIENT ALERT AND ORIENTED X4. DENIES PAIN. UP TO BSC WITH SBA. DRESSING ON R FOOT D/I. SLEPT OFF AND ON DURING NIGHT.
[2020-11-22 08:21] VITALS: BP 173/81
[2020-11-22 09:13] VITALS: BP 173/81
--- NOTE | 2020-11-22 09:52 | NUR ---
ASSUMED CARE OF PT AT 0700 THIS MORNING. PT A&O X4. PT STATED NO PAIN OR ISSUES THIS MORNING. PT'S DRESSING CBI, SKIN W/P/D, SLIGHT TREMORS IN THE HANDS WHILE HOLDING ITEMS. LUNGS CLEAR BILAT, ALL RUIZ. CAP REFILL <3SEC X 4, OTHERWISE UNREMARKABLE. PT WILL BE TRANSFERRRING TO [facility] LATER IN THE MORNING. WILL CALL IN REPORT TO [facility] NURSE PRIOR TO TRANSPORT.
== END 2020-11-22 13:34 | DRG 856 ==
LOC: 4S 09:13 → TBA 09:13 → 4S 14:39 → PRE 15:21 → 4S 11-22 13:34
PROVIDERS: Internal Medicine; Internal Medicine Geriatric Medicine; Specialist; ADMIT Orthopaedic Surgery Foot and Ankle Surgery; ATTEND Orthopaedic Surgery Foot and Ankle Surgery
DX: T81.49XA Infection following a procedure, other surgical site, initial encounter (principal); L89.313 Pressure ulcer of right buttock, stage 3; E43 Unspecified severe protein-calorie malnutrition; N17.9 Acute kidney failure, unspecified; M00.071 Staphylococcal arthritis, right ankle and foot; Z68.41 Body mass index [BMI] 40.0-44.9, adult; E78.5 Hyperlipidemia, unspecified; E66.01 Morbid (severe) obesity due to excess calories; Y83.8 Other surgical procedures as the cause of abnormal reaction of the patient, or of later complication, without mention of misadventure at the time of the procedure; E11.22 Type 2 diabetes mellitus with diabetic chronic kidney disease; I12.9 Hypertensive chronic kidney disease with stage 1 through stage 4 chronic kidney disease, or unspecified chronic kidney disease; D64.9 Anemia, unspecified; Z20.822 Contact with and (suspected) exposure to COVID-19; R53.81 Other malaise; B95.62 Methicillin resistant Staphylococcus aureus infection as the cause of diseases classified elsewhere; N18.9 Chronic kidney disease, unspecified; Y92.89 Other specified places as the place of occurrence of the external cause; Z68.26 Body mass index [BMI] 26.0-26.9, adult; Z88.0 Allergy status to penicillin; Z98.42 Cataract extraction status, left eye
CPT/HCPCS: 10102; 27000; 50010; 50101; 50386; 51647; 53078; 56525; 56526; 57091; 57103; 57181; 58589; 62110; 62900; 70005

== ENCOUNTER 2020-11-21 15:50 | Inpatient (IN) | payer BC, OTHER ==
[~2020-11-21] VITALS: Ht 157.5 cm; Wt 97.2 kg
[~2020-11-21 15:50] MED LIST changes: +ACIDOPHILUS1 EAC4 PO; +ASPIRIN EC325 M1 PO; +NORVASC5 MG PO; +PROTONIX 20 MG20 M1 PO
[2020-11-22 13:30] VITALS: BP 167/76
--- NOTE | 2020-11-22 13:51 | NUR ---
ON-GOING ASSESSMENT: CM REVIEWED CHART. PLANS ARE FOR PATIENT TO GO TO [facility] ACUTE REHAB TODAY. [facility] STATING THEY CAN ACCEPT HER. BEDSIDE RN AWARE OF THE NUMBER TO CALL REPORT. PT REPORTS UPDATING HER BROTHER.
--- NOTE | 2020-11-22 16:12 | NUR ---
chart review, she new today on acute rehab. a & o x 3. intro to cm, team meeting and dcp. she independent when feeling ok. lives in house with her daughter, 4 steps to enter, 4 steps inside. has aggie montiel. retired. drives and manage own medication. will cont following as needed for dc needs.
[2020-11-22 19:46] VITALS: BP 132/80
--- NOTE | 2020-11-23 03:55 | NUR ---
ASSESSMENT CHARTED, VSS, LABS DRAWN THRU PICC, NO C/O PAIN, PREFERS SLEEPING IN RECLINER WITH FEET ELEVATED ANKLE DRESSING REMAINS CDI, resting quietly in room thru the noc, will con't to monitor.
[2020-11-23 05:27] LABS: HEMATOCRIT 26.3 % (37.0-47.0); HEMOGLOBIN 8.7 gm/dL (12.0-15.0); MCH 26.9 pg (26.0-34.0); MCV 81.5 fL (80.0-100.0); RBC 3.23 mil/uL (4.20-5.00); RDW 22.9 % (10.5-14.5); WBC 5.7 thou/uL (4.0-11.0)
[2020-11-23 05:49] LABS: CALCIUM 8.2 mg/dL (8.5-10.1); CREATININE 1.2 mg/dL (0.6-1.0); MAGNESIUM 1.5 mg/dL (1.8-2.4); POTASSIUM 3.2 mmol/L (3.5-5.1)
[2020-11-23 08:00] VITALS: BP 147/71
--- NOTE | 2020-11-23 15:13 | NUR ---
ASSUMED CARE AT 0700. ALERT AND ORIENTATED. SLEPT FAIRLY WELL LAST NIGHT. DENIES ANY PAIN. BLOOD SUGAR CHECKED AND IS ON ORAL MEDS. GORDO MALTED MILK SUPERVISOR AWARE AND WANTS TO KEEP BS ACHS FOR ANOTHER 24H. PT REPORTED ALLERGIES. VIDEO SWALLOW DONE AND NO CHANGES IN DIET. WOUND CARE TO R LAT ANKLE DONE. PT HAD A BM TODAY. DIURESING ADEQ. PIVOT WITH NWB TO RLE TO BSC. PARTICIPATING WITH THERAPY.
[2020-11-23 19:50] VITALS: BP 136/59
--- NOTE | 2020-11-24 03:25 | NUR ---
pt alert and oriented x4, pleasant and cooperative. pt took hs meds with water tolerating well. pt requested to sleep in recliner with legs elevated. pt appears to be sleeping soundly. chair alarm on and call light in reach. will continue to monitor.
[2020-11-24 08:00] VITALS: BP 143/80
--- NOTE | 2020-11-24 17:35 | NUR ---
Alert and orientated X4. Sitting in gerichair. Calm, cooperative and compliant. Breath sounds clear. Reg HR auscultated. Color pink with brisk capillary refill and palpable peripheral pulses. 3+ edema in lower extremities. PICC line per R upper arm soft and flat, withdraws and flushes without diff, drsg dry and intact. Yellow urine per commode. Active bowel sounds over soft, rounded abdomen. Wound per R ankle without s/o infection, with areas of wound opening beneath sutures, redressed with vaseline guaze, ABD, kerlix and alyssa. Spent most of day in chair when not in therapies. Currently eating dinner without s/o distress.
[2020-11-24 20:20] VITALS: BP 141/61
--- NOTE | 2020-11-25 01:52 | NUR ---
assumed care approx 1900 evening 11/24. pt sitting in recliner alert and oriented x4, appropriate and cooperative. pt requested to stay in recliner with legs elevated. pt took hs meds with water tolerating well. pt remains in isolation as ordered. pt appears to be sleeping soundly. chair alarm on and call light in reach. will continue to monitor.
[2020-11-25 05:45] LABS: ABSOLUTE NEUTROPHILS 3.9 thou/uL (1.4-8.2); BASOPHILS 1.8 % (0.0-2.0); EOSINOPHILS 10.2 % (0.0-3.0); HEMATOCRIT 25.2 % (37.0-47.0); HEMOGLOBIN 8.2 gm/dL (12.0-15.0); LYMPHOCYTES 16.8 % (24.0-44.0); MCH 26.5 pg (26.0-34.0); MCHC 32.6 g/dL (28.0-37.0); MCV 81.3 fL (80.0-100.0); MONOCYTES 5.6 % (1.0-8.0); PLATELET COUNT 321 thou/uL (150-400); POLYS 65.6 % (36.0-66.0); RBC 3.09 mil/uL (4.20-5.00); RDW 23.2 % (10.5-14.5)
[2020-11-25 06:07] LABS: CALCIUM 8.6 mg/dL (8.5-10.1); CREATININE 1.1 mg/dL (0.6-1.0); MAGNESIUM 1.7 mg/dL (1.8-2.4); POTASSIUM 3.6 mmol/L (3.5-5.1)
[2020-11-25 08:00] VITALS: BP 148/75
[2020-11-25 11:34] LABS: GLYCOHEMOGLOBIN (HGB A1C) 7.6
--- NOTE | 2020-11-25 15:25 | NUR ---
CARE ASSUMED AT 0700, PT ALERT AND ORIENTED X4, PLEASANT AND COOOPERATIVE. PT DENIES ANY PAIN, NAUSEA AND VOMITTING. PT ON ROOM AIR, NO SIGNS OF DISTRESS NOTED.USES CALL LIGHT APPROPRIATELY. WOUND CARE COMPLETED PER ORDER. DENIES ANY, WILL CONTINUE TO MONITOR
[2020-11-25 20:25] VITALS: BP 134/63
--- NOTE | 2020-11-26 00:58 | NUR ---
PT ASSESSMENT COMPLETED AND VSS. MEDS GIVEN ORDERED AND WELL TOLERATED. FALL PRECAUTIONS IN PLACE. NONWEIGHT BEARING ON RIGHT FOOT. DRESSING TO RIGHT FOOT DRY AND INTACT. UP TO THE BSC WITH ASST/GAIT/WALKER. VOIDING LARGE AMOUNT OF YELLOW URINE. PT DENIES PAIN. ELEVATED R LEG ON PILLOW. SLEEPING WELL. WILL CONTINUE TO MONITOR FREQUENTLY.
[2020-11-26 07:45] VITALS: BP 124/63
--- NOTE | 2020-11-26 11:45 | NUR ---
ASSUMED CARE OF PT AT 0720. PT IS A&OX4. IS ON ROOM AIR. DENIES PAIN IN RIGHT ANKLE. DRSG C/D/I. ELEVATED. REMAINS IN CONTACT ISOLATION FOR INFECTION IN ANKLE. PT IS STABLE. IS UP WITH 1 ASSIST, GB, WALKER PIVOT TO BSC. FALL PRECAUTIONS & HOURLY ROUNDING CONTINUED THIS SHIFT. PT IS ABLE TO TURN SELF & REPOSITION SELF IN BED. LABS & VITALS REVIWED. WILL CONTINUE TO MONITOR. PT IS CURRENTLY SITTING UP IN BED WATCHING TV. CALL LIGHT WITHIN REACH. WILL CONTINUE TO MONITOR.
[2020-11-26 20:01] VITALS: BP 121/58
--- NOTE | 2020-11-27 02:42 | NUR ---
STAND PIVOT TRANSFER TO BSC FOR LARGE VOID. DENICE WRAPPED ANKLE DRESSING DRY AND INTACT. Z-GUARD TO BOTTOM, MATT PICC LINE PATENT FOR BLOOD DRAW THIS MORNING.
[2020-11-27 07:50] VITALS: BP 144/74
[2020-11-27 08:56] LABS: ABSOLUTE NEUTROPHILS 3.3 thou/uL (1.4-8.2); BASOPHILS 1.2 % (0.0-2.0); EOSINOPHILS 10.7 % (0.0-3.0); HEMATOCRIT 24.1 % (37.0-47.0); HEMOGLOBIN 7.7 gm/dL (12.0-15.0); MCH 26.4 pg (26.0-34.0); MCV 82.4 fL (80.0-100.0); MONOCYTES 5.8 % (1.0-8.0); PLATELET COUNT 287 thou/uL (150-400); POLYS 63.3 % (36.0-66.0); RBC 2.92 mil/uL (4.20-5.00); RDW 23.1 % (10.5-14.5); WBC 5.2 thou/uL (4.0-11.0)
[2020-11-27 09:11] LABS: ALBUMIN 2.4 g/dL (3.4-5.0); CALCIUM 8.6 mg/dL (8.5-10.1); CREATININE 1.3 mg/dL (0.6-1.0); POTASSIUM 3.6 mmol/L (3.5-5.1); TOTAL BILIRUBIN 0.4 mg/dL (0.2-1.0); TOTAL PROTEIN 7.1 g/dL (6.4-8.2)
[2020-11-27 09:12] LABS: ANISOCYTOSIS 1+; HYPOCHROMASIA 1+; PLATELET ESTIMATE NORMAL
--- NOTE | 2020-11-27 14:45 | NUR ---
ASSUMED CARE AT 0700 THIS MORNING. PT. HAS BEEN PLEASANT AND COOPERATIVE WITH HER CARES AND THERAPIES TODAY. TOOK ALL HER MORNING MEDICATIONS WITHOUT PROBLEMS NOTED. BLOOD SUGAR WAS WNL AND REQUIRED NO INSULIN AT BREAKFAST OR LUNCH. SHE IS A RIGHT PICC LINE IN HER MATT. SHE RECEIVES AN ANTIBIOTIC IV.
[2020-11-27 19:47] VITALS: BP 146/54
--- NOTE | 2020-11-28 02:23 | NUR ---
STAND PIVOT FROM BED TO BSC FOR VOID GREATER THAN 400 CC. PATIENT USES WALKER TO AVOID BEARING WEIGHT ON RIGHT ANKLE WHICH IS WRAPPED IN DENICE WRAP. Z-GUARD TO SMALL WOUND RIGHT BUTTOCK.
[2020-11-28 08:00] VITALS: BP 140/61
--- NOTE | 2020-11-28 12:39 | NUR ---
team meeting, reccommendation: cont on isolation rt mrsa right ankle wound. using knee scooter, nwb right lower ext. has steps to cont working on with therapy. pt will need to rent knee scooter if not covered by pcb. On IV abx rt mrsa. dc 12/05. family traning before dc home. bedside nurse to ID to see if she going to need iv abx at home. HH ( pt, ot, and nursing). will cont following as needed for dc needs.
--- NOTE | 2020-11-28 16:02 | NUR ---
ASSUMED CARE AT 0700. PATIENT IS ALERT AND ORIENTED X4. PAIENT MIGUEL'S. BURGLAR ALARM SUPERINTENDENT ARE EQUAL. LUNGS ARE CLEAR. ABD IS SOFT WITH BSX4. PATIENT IS VOIDING ARLENE COLORED URINE. FALL AND SAFETY PROTOCOLS IN PLACE. DENIES PAIN AT THIS TIME. CONTINUES TO USE SCOOTER FOR MOBILITY. DRESSING CHANGED TO LEFT FOOT ACCORDING TO PROTOCOLS. PATIENT HAS PICC LINE IN HER RIGHT AC. SITE WITHOUT REDNESS OR SWELLING. PICC FLUSHED WELL. PATIENT CONTINUES ON IV ABT FOR FOOT WOUND. CONTINUES IN ISOLATION FOR MRSA OF THE FOOT. WILL CONTINUE TO MONITER.
[2020-11-28 19:46] VITALS: BP 135/62
--- NOTE | 2020-11-29 02:07 | NUR ---
ASSUMED CARE APPROX 1900 EVENING 11/28. PT SITTING IN RECLINER WITH LEGS ELEVATED. PT ALERT AND ORIENTED X4, APPROPRIATE AND COOPERATIVE. PT REMAINS IN ISOLATION FOR MRSA. PT TOOK HS MEDS WITH WATER TOLERATING WELL. PT APPEARS TO BE SLEEPING SOUNDLY. BED ALARM ON AND CALL LIGHT IN REACH. WILL CONTINUE TO MONITOR.
[2020-11-29 08:00] VITALS: BP 146/71
--- NOTE | 2020-11-29 10:28 | NUR ---
ASSUMED CARE AT 0700. SLEPT FAIRLY WELL. ALERT AND ORIENTATED. DENIES ANY PAIN. APPETITE GOOD, HAD A BM YESTERDAY. DIURESING ADEQ. ISOLATION MAINTAINED FOR MRSA IN R ANKLE. WOUND CARE DONE TO R ANKLE, CURRENTLY ON IV DAPTOMYCIN. UP WITH PT WITH KNEE SCOOTER. ACCUCHECK DONE AND ON ORAL MEDS. TOLERATED HER AM MEDS WITH WATER. PARTICIPATED IN THERAPY.
[2020-11-29 11:26] LABS: HEMATOCRIT 25.2 % (37.0-47.0)
--- NOTE | 2020-11-29 15:48 | NUR ---
visit with pt via phone call, she been checking close to home to rent knee scooter for dc, insurance will not cover knee scooter, she found pharmacy has one for 55 per [address]. cm called dr deric borden ( ). discussed iv home needs and hh " anyone that comes out to my house will be fine"/rodolfo. referral to be sent to [facility] and still looking for hh in her area.
[2020-11-29 19:55] VITALS: BP 135/60
--- NOTE | 2020-11-29 22:31 | NUR ---
PT ASSESSMENT COMPLETED AND VSS. MEDS GIVEN ORDERED AND WELL TOLERATED. FALL PRECAUTIONS IN PLACE. SITTING UP IN CHAIR EARLY DURING THE SHIFT. DSG ON R ANKLE DRY AND INTACT. NEURO CHECKS WNL. PT DENIES NEEDS. WILL CONTINUE TO MONITOR FREQUENTLY.
[2020-11-30 08:00] VITALS: BP 136/69
--- NOTE | 2020-11-30 11:01 | NUR ---
ASSUMED CARE AT 0700. SLEPT WELL. ALERT AND ORIENTATED. DENIES ANY PAIN OR DISCOMFORT. BLOOD SUGAR CHECKED AND GIVEN HER ORAL MEDS AND SSI. APPETITE GOOD. HAD A BM YESTERDAY. DIURESING ADEQ. WOUND CARE TO R ANKLE DONE. ISOLATION MAINTAINED. ON DAILY IV DAPTOMYCIN. PER DR PATINO, PT WILL DISCHARGE HOME WITH IV DAPTOMYCIN. PARTICIPATING WITH THERAPY AND PROGRESSING TOWARDS GOAL.
--- NOTE | 2020-11-30 12:19 | NUR ---
FAXED REFERRAL TO [facility] RECEIVED CONFIRMATION AND TRIED CALLING AND THERE WAS NO ANSWER AND NO VOICEMAIL. FAXED REFERRAL TO [facility] RECEIVED CONFIRMATION SPOKE WITH INTAKE AND THEY NEED TO RUN PT'S INSURANCE WILL F/U ON FRIDAY.
--- NOTE | 2020-11-30 14:12 | NUR ---
faxed referral to [facility] for iv home abx therapy.
[2020-11-30 19:56] VITALS: BP 145/53
--- NOTE | 2020-12-01 00:37 | NUR ---
PT ASSESSMENT COMPLETED AND VSS. MEDS GIVEN ORDERED AND WELL TOLERATED. FALL PRECAUTIONS IN PLACE. PT DENIES NEEDS. RESTING WATCHING TV. DSG ON R ANKLE DRY AND INTACT. SLEEPING. WILL CONTINUE TO MONITOR FREQUENTLY.
[2020-12-01 07:15] VITALS: BP 143/68
--- NOTE | 2020-12-01 11:17 | NUR ---
DENIES COMPLAINTS DURING AM ASSESSMENT.DENIES PAIN TO RIGHT ANKLE STATING "IT HASN'T HURT FOR A LONG TIME-SINCE THE FIRST SURGERY" LUNGS CLEAR-VS WNL. BLOOD SUGAR 76 AC BREAKFAST. APPETITE GOOD. CONTINUES TO BE TOE TOUCH WT BEARING TO RIGHT LE. DRESSING CHANGE TO RIGHT ANKLE COMPLETED BY WOUND CARE MD AT APPROX 1045-DRESSING C/D/I. UP CURRENTLY WITH PHYSICAL THERAPY AND IS LAUGHING/JOKING BRIGHT AFFECT APPEARS TO BE TOLERATING ACTIVITY WELL. PIC LINE TO UPPER RIGHT ARM WITHOUT NOTED REDNESS,SWELLING-FLUSHES WELL AFTER IV ABX ADMINISTRATION-DENIES PAIN TO SITE.
--- NOTE | 2020-12-01 14:15 | NUR ---
SPOKE WITH DONG IN INTAKE AT [facility] THEY CAN ACCEPT JUST NEEDED TO KNOW PT'S PCP (DR CANDI ROMERO) AND DR CINDY PATINO FOR IV ABX ORDERS. PT TO DC 12/05.
[2020-12-01 14:18] VITALS: BP 143/68
--- NOTE | 2020-12-01 14:46 | NUR ---
bedside nurse got name of pcp dr nathan martinez
[2020-12-01 20:07] VITALS: BP 143/75
--- NOTE | 2020-12-02 03:23 | NUR ---
assumed care approx 1900 evening 12/01. pt alert and oriented x4, pleasant and cooperative. pt up to bsc to void. pt took hs meds with water tolerating well. pt appears to be sleeping soundly. bed alarm on and call light in reach. will continue to monitor.
[2020-12-02 07:15] VITALS: BP 142/66
--- NOTE | 2020-12-02 10:21 | NUR ---
ASSUMED CARE AT 0700. PATIENT IS ALERT AND ORIENTEDX4. PATIENT MIGUEL'S, PRESCRIPTIONIST ARE EQUAL. LUNGS ARE CLEAR. ABD IS SOFT WITH BSX4. PATIENT IS VOIDING ARLENE COLORED URINE. PATIENT REMAINS IN MRSA ISOLATION. PATIENT LEFT FOOT DRESSING CHANGED ACCORDING TO PROTOCOL. PATIENT HAS RIGHT PICC LINE IN HER UPPER ARM. PATIENT CONTINUES ON IV ABTS WITHOUT ADVERSE REACTION. PATIENT IS UP TO BSC WITH ASSIST OF 1 STAFF. FALL AND SAFETY PROTOCOLS IN PLACE. DENIES PAIN AT THIS TIME. CONTINUES TO PROGRESS TOWARDS D/C GOALS. WILL CONTINUE TO MONITER.
--- NOTE | 2020-12-02 16:36 | HC ---
[facility] [place] [address] CONSULTATION Name: BEKAH GARCIA Room #: 509-P ADM IN M.R.#: [id number] Admission: 11/22/20 Attend Phys: Blake Madrid MD Discharge: Date of : 57 Report #: [id number] THIS REPORT FOR: cc: FELA - No family physician/PCP FELA - No family physician/PCP Jose Luis Anderson PhD ~ NEUROBEHAVIORAL STATUS EXAM ATTENDING PHYSICIAN: Blake Madrid MD PATTERN ASSEMBLER: Jose Luis Anderson, PhD CLINICAL PRESENTATION: The patient is a 65-year-old female, admitted to the hospital at [facility] for right ankle septic arthritis. The patient sustained a right ankle fracture and underwent an ORIF on 06/11/2020. On 11/02/2020, she had hardware removed with a wound VAC placed. Further concern about infection led to her hospitalization. The patient carries a medical problem list that includes anemia, diabetes mellitus type 2 in a nonobese individual, hypertension, hypoxia and septic arthritis of the right ankle. Her diagnostic assessment on admission to the rehabilitation unit was a MRSA septic right ankle arthritis, status post incision and drainage x 2 nonweightbearing, type 2 diabetes mellitus, hypertension, hyperlipidemia, anemia, CKD, left eye blind and allergic rhinitis. A complete description of her medical condition and history can be found in her medical record. Neuropsychological consultation was requested to provide assistance in the assessment of cognitive and emotional status and to provide recommendations and services. Prior to this most recent admission, she was living independently in her own home. She has one daughter that lives with her. Her had a stroke last year and is currently in a rehabilitation facility. She has 3 brothers and one lives in the [place] area. The patient is a high school graduate with 1 year of college. 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 Prior to this most recent deterioration in her medical condition, she was independent with activities of daily living. Her history includes working at night and sleeping during the day, which has made adjustment in the hospital difficult. TECHNIQUES UTILIZED: Clinical interview, review of medical records, staff consultation and behavioral observation, mini mental status exam 2 standard version and clock drawing. EXAMINATION FINDINGS: The patient was alert and cooperative with the interview. She accurately described the events that occurred, which led to her [facility] [address] [place] [address] CONSULTATION Name: BEKAH GARCIA Room #: 509-P [facility] IN M.R.#: [id number] Admission: 11/22/20 Attend Phys: Blake Madrdi MD Discharge: Date of : 57 Report #: [id number] ankle injury which included slipping on a dryer sheet in her laundry room and landing on her ankle. There is no evidence of aphasia. Her thoughts are logical and goal oriented. There is no evidence of thought disorder, aphasia, auditory or visual hallucinations or suicidal ideation. She describes her symptoms to include an increase in anxiety that is associated with repeated surgeries. The anxiety initially occurred prior to placement of a mask during the anesthesia process. She does not report difficulty with memory or cognitive functioning. Sleep and appetite are reported as normal, although as indicated she is used to being awake, more at night and sleeping during the day which effects adjustment while hospitalized. She does not report feelings of depression. Her performance on the MMSE 2 brief version is within normal limits with a raw score of 15/16. Performance on the MMSE 2 standard version was within normal limits with a raw score of 28/30. The patient was 4/5 for serial sevens, 2/2 for naming, 1/1 for repetition, 3/3 for comprehension. She could read and follow a single command, write a sentence and copy a simple geometric design. The patient was also 3/3 for immediate recall of 3 items after a brief time delay and distraction. Clock drawing is within normal limits. The patient is alert and oriented. Her primary issue is likely anxiety associated with her surgeries and extended recovery. RECOMMENDATIONS: She may benefit from the use of relaxation techniques to assist with management of anxiety. Reassurance in regard to her recovery and increasing independence will lead to improvement in self confidence and diminished anxiety as she progresses in rehab. Thank you very much for allowing me to provide the consultation on this patient. <ELECTRONICALLY SIGNED> By: Jose Luis Anderson, PhD 12/02/20 [id number] [id number] Jose Luis Anderson, PhD /nt
[2020-12-02 20:00] VITALS: BP 148/57
--- NOTE | 2020-12-03 01:29 | NUR ---
ASSESSMENT COMPLETED. PT CALLS FOR HELP. REQUIRES SBA TO GET TO THE BSC-SHE PIVOTS WELL WITH LEFT FOOT. DRSG LOOK D/I TO R ANKLE. SOME EDEMA AND REDNESS NOTED AROUND THE RLE ANKLE AREA-AFEBRILE. EDEMA TO LLE.PT CONTINUES ON ANTIBIOTICS, SHE IS EATING WELL.SHE IS STABLE ON ROOM AIR-DENIES SOA, USING BSC FREQUENTLY AND ATTRIBUTES IT TO THE DIURETIC SHE IS RECEIVING. REMAINS ON ISOLATION FOR MRSA.CALL LIGHT WITHIN REACH, FALL PREC IN PLACE.
[2020-12-03 08:15] VITALS: BP 126/43
--- NOTE | 2020-12-03 15:00 | NUR ---
ASSUMED CARE OF PT AT 0715. PT IS A&OX4. IS ON ROOM AIR. DENIES PAIN IN RIGHT ANKLE AT THIS TIME. DRSG C/D/I. IS STABLE. HAS BILAT LE EDEMA. HEELS OFF LOADED. IS UP WITH 1 ASSIT, GB, WALKER TO BSC. FALL PRECAUTIONS & HOURLY ROUNDING CONTINUED THIS SHIFT. LABS & VITALS REVIEWED. CALL LIGHT WITHIN REACH. WILL CONTINUE TO MONITOR.
[2020-12-03 19:13] VITALS: BP 126/52
--- NOTE | 2020-12-04 02:51 | NUR ---
ASSUMED CARE APPROX 1900 EVENING 12/03. PT ALERT AND ORIENTED X4, PLEASANT AND COOPERATIVE SITTING UP IN RECLINER DOZING AT CHANGE OF SHIFT. PT STATED SHE HAD A GOOD DAY. PT TOOK HS MEDS WITH WATER TOLERATING WELL. PT PREFERRED TO SLEEP IN RECLINER THIS NIGHT. CHAIR ALARM ON AND CALL LIGHT IN REACH. WILL CONTINUE TO MONITOR.
[2020-12-04 05:38] LABS: ABSOLUTE NEUTROPHILS 3.6 thou/uL (1.4-8.2); BASOPHILS 1.2 % (0.0-2.0); EOSINOPHILS 9.3 % (0.0-3.0); HEMATOCRIT 23.9 % (37.0-47.0); HEMOGLOBIN 7.8 gm/dL (12.0-15.0); LYMPHOCYTES 18.5 % (24.0-44.0); MCH 26.8 pg (26.0-34.0); MCHC 32.6 g/dL (28.0-37.0); MCV 82.2 fL (80.0-100.0); MONOCYTES 5.5 % (1.0-8.0); PLATELET COUNT 331 thou/uL (150-400); POLYS 65.5 % (36.0-66.0); RBC 2.91 mil/uL (4.20-5.00); RDW 23.8 % (10.5-14.5); WBC 5.6 thou/uL (4.0-11.0)
[2020-12-04 05:59] LABS: ALBUMIN 2.5 g/dL (3.4-5.0); CALCIUM 8.5 mg/dL (8.5-10.1); CREATININE 1.4 mg/dL (0.6-1.0); POTASSIUM 3.5 mmol/L (3.5-5.1); TOTAL BILIRUBIN 0.3 mg/dL (0.2-1.0); TOTAL PROTEIN 7.1 g/dL (6.4-8.2)
[2020-12-04 08:00] VITALS: BP 122/54
[2020-12-04 08:28] LABS: ANISOCYTOSIS 1+; PLATELET ESTIMATE NORMAL
--- NOTE | 2020-12-04 11:49 | NUR ---
ASSUMED CARE AT 0700. SLEPT WELL. ALERT AND ORIENTATED. DENIES ANY PAIN. APPETITE IS GOOD, LAST BM 12/03. NO COMPLAINS OF SHORT OF AIR, ON LASIX AND IS ON RA. BLOOD SUGAR 91, NO REQ FOR INSULIN AND IS ONLY ON ORAL MEDS. ISOLATION FOR MRSA TO R ANKLE MAINTAINED. PT IS NWB TO RLE AND USES SCOOTER WITH PT. ABLE TO PIVOT TO BSC. WOUND CARE DONE TO R ANKLE. EDEMA HAS IMPROVE WITH LEGS ELEVATED. PARTICIPATES IN [facility] THERAPIES. PLAN FOR DC HOME TOMORROW WITH IV ABX. IV TEAM CALLED AND WILL CHANGE DRESSING TODAY.
[2020-12-04 19:14] VITALS: BP 157/65
--- NOTE | 2020-12-04 21:28 | NUR ---
ASSESSED AT START OF SHIFT. PT A&OX4. SITTING UP IN CHAIR DENIES PAIN, N/V. PICC LINE INTACT AND SALINE LOCK. DRESSING NOTED ON RT FOOT C/D/I ELEVATED EXT. UP X1 TO THE BATHROOM. EVENING MEDS GIVEN AND PT BALAJI IT WELL. FALL PREC IN PLACE AND CALL LIGHT AT REACH WILL CONT TO MONITOR.
[2020-12-05 07:18] VITALS: BP 144/70
[2020-12-05] MEDS ORDERED: VITAMIN D21250 MC1 PO (09:30)
[2020-12-05] MEDS ORDERED: FOLIC ACID1 MG PO (09:30)
[2020-12-05] MEDS ORDERED: IRON325 PO (09:30)
[2020-12-05] MEDS ORDERED: VITAMIN B-12500 MCG PO (09:30)
[2020-12-05] MEDS ORDERED: DAPTOMYCIN500 MG IV (09:30)
[2020-12-05] MEDS ORDERED: PERCOCET 7.5-31 EACH PO (09:31)
[2020-12-05 10:38] VITALS: BP 143/68
--- NOTE | 2020-12-05 12:01 | NUR ---
PT DISCHARGING TODAY TO HOME WITH [facility] AND [facility]. FAXED DC ORDERS/SUMMARY TO BOTH RECEIVED CONFIRMATION THEY WILL ARRANGE VISITS WITH PT.
--- NOTE | 2020-12-05 12:35 | NUR ---
ASSUMED CARE AT 0700. SLEPT WELL. ALERT AND ORIENTATED. DENIES ANY PAIN. ACCUCHECK 119, NO INSULIN GIVEN. APPETITE GOOD, HAD A BM TODAY. DILUPEING ALLIQ. GIVEN LASIX THIS MORNING. DAUGHTER IS HERE TODAY WITH FAMILY TRAINING. [facility] HERE TO TEACH ON IV AND BROUGHT THE ANTIBIOTICS FOR PT TO TAKE HOME TODAY. WOUND CARE DONE. DISCHARGE INSTRUCTION GIVEN TO DAUGHTER AND PT AND VERBALIZED UNDERSTANDING. ALL QUESTIONS AND CONCERNS ANSWERED. PT ABLE TO WHEEL HERSELF FROM ROOM TO ELEVATOR AND SHE WAS ABLE TO USE THE SCOOTER AND TRANSFER FROM WC TO CAR. PT LEFT AT 1425 WITH DAUGHTER.
--- NOTE | 2020-12-05 12:57 | NUR ---
team meeting, reccommedation, cont with dc today, [facility], [facility] IV [facility], pt daughter already rented knee scooter.
[2020-12-05 14:23] VITALS: BP 143/68
--- NOTE | 2020-12-05 15:39 | NUR ---
PT DISCHARGING HOME WITH [facility] AND [facility] FAXED DC ORDERS/SUMMARY TO [facility] SPOKE WITH MATTHEW IN INTAKE SHE RECEIVED ORDERS WITH [facility] FOR WOUND CARE, IV ABX, AND PICC LINE CARE THEY WILL REMIND PT TO SCHEDULE APPT WITH WOUND CLINIC (DR SEAMAN) SPOKE WITH RIVKA IN WOUND CARE OFFICE SHE JUST NEEDS PT TO MAKE APPT TO BE SEEN IN 10 DAYS POST DISCHARGE. FAXED DC ORDERS/SUMMARY TO [facility] SPOKE WITH ALEX IN INTAKE SHE RECEIVED ORDERS AND WILL ARRANGE VISIT WITH PT.
== END 2020-12-05 14:07 | disposition home health service (06) | DRG 91 ==
PROVIDERS: Hospitalist; Nurse Practitioner; Nurse Practitioner Family; Specialist; ADMIT Physical Medicine & Rehabilitation; ATTEND Physical Medicine & Rehabilitation
DX: R26.89 Other abnormalities of gait and mobility (principal); L89.313 Pressure ulcer of right buttock, stage 3; E43 Unspecified severe protein-calorie malnutrition; N17.9 Acute kidney failure, unspecified; M00.9 Pyogenic arthritis, unspecified; E87.6 Hypokalemia; E83.42 Hypomagnesemia; D64.9 Anemia, unspecified; E78.5 Hyperlipidemia, unspecified; B95.62 Methicillin resistant Staphylococcus aureus infection as the cause of diseases classified elsewhere; I12.9 Hypertensive chronic kidney disease with stage 1 through stage 4 chronic kidney disease, or unspecified chronic kidney disease; E11.22 Type 2 diabetes mellitus with diabetic chronic kidney disease; N18.9 Chronic kidney disease, unspecified; H54.62 Unqualified visual loss, left eye, normal vision right eye; E66.01 Morbid (severe) obesity due to excess calories; E53.8 Deficiency of other specified B group vitamins; J30.9 Allergic rhinitis, unspecified; Z68.39 Body mass index [BMI] 39.0-39.9, adult; Z86.14 Personal history of Methicillin resistant Staphylococcus aureus infection
CPT/HCPCS: 10112

== ENCOUNTER → 2020-12-14 | Outpatient (CLI) | payer BC, OTHER ==
[~2020-12-14] MED LIST changes: +DAPTOMYCIN500 MG IV; +FOLIC ACID1 MG PO; +IRON325 PO; +PERCOCET 7.5-31 EACH PO; +VITAMIN B-12500 MCG PO; +VITAMIN D21250 MC1 PO
== END ==
LOC: HYPER 09:03
PROVIDERS: ATTEND Emergency Medicine Emergency Medical Services
DX: T81.49XA Infection following a procedure, other surgical site, initial encounter (principal); E11.622 Type 2 diabetes mellitus with other skin ulcer; L97.312 Non-pressure chronic ulcer of right ankle with fat layer exposed; E11.36 Type 2 diabetes mellitus with diabetic cataract; E66.01 Morbid (severe) obesity due to excess calories; E78.5 Hyperlipidemia, unspecified; I10 Essential (primary) hypertension; M13.871 Other specified arthritis, right ankle and foot; Z79.82 Long term (current) use of aspirin; Z79.84 Long term (current) use of oral hypoglycemic drugs; Z68.41 Body mass index [BMI] 40.0-44.9, adult; Y92.238 Other place in hospital as the place of occurrence of the external cause; Y83.8 Other surgical procedures as the cause of abnormal reaction of the patient, or of later complication, without mention of misadventure at the time of the procedure

== ENCOUNTER → 2020-12-28 | Outpatient (CLI) | payer BC, OTHER | LOC: HYPER 09:11 | PROVIDERS: ATTEND Emergency Medicine | DX: T81.49XD Infection following a procedure, other surgical site, subsequent encounter (principal); E11.622 Type 2 diabetes mellitus with other skin ulcer; L97.312 Non-pressure chronic ulcer of right ankle with fat layer exposed; E11.36 Type 2 diabetes mellitus with diabetic cataract; E66.01 Morbid (severe) obesity due to excess calories; E78.5 Hyperlipidemia, unspecified; I10 Essential (primary) hypertension; M13.871 Other specified arthritis, right ankle and foot; Z79.82 Long term (current) use of aspirin; Z79.84 Long term (current) use of oral hypoglycemic drugs; Z68.41 Body mass index [BMI] 40.0-44.9, adult; Y83.8 Other surgical procedures as the cause of abnormal reaction of the patient, or of later complication, without mention of misadventure at the time of the procedure ==

== ENCOUNTER → 2021-01-11 | Outpatient (CLI) | payer BC, OTHER | LOC: HYPER 14:38 | PROVIDERS: ATTEND Emergency Medicine | DX: T81.49XD Infection following a procedure, other surgical site, subsequent encounter (principal); E11.622 Type 2 diabetes mellitus with other skin ulcer; L97.312 Non-pressure chronic ulcer of right ankle with fat layer exposed; E11.36 Type 2 diabetes mellitus with diabetic cataract; E66.01 Morbid (severe) obesity due to excess calories; E78.5 Hyperlipidemia, unspecified; I10 Essential (primary) hypertension; M13.871 Other specified arthritis, right ankle and foot; Z79.82 Long term (current) use of aspirin; Z79.84 Long term (current) use of oral hypoglycemic drugs; Z68.41 Body mass index [BMI] 40.0-44.9, adult; Y83.8 Other surgical procedures as the cause of abnormal reaction of the patient, or of later complication, without mention of misadventure at the time of the procedure ==

== ENCOUNTER → 2021-02-08 | Outpatient (CLI) | payer BC, OTHER ==
[~2021-02-08] MED LIST changes: +ASPIRIN325 PO; +NORVASC 2.5 MG2.5 M1 PO; +VITAMIN B-121000 MC2 PO
== END ==
LOC: HYPER 07:58
PROVIDERS: ATTEND Emergency Medicine
DX: T81.49XD Infection following a procedure, other surgical site, subsequent encounter (principal); E11.622 Type 2 diabetes mellitus with other skin ulcer; L97.312 Non-pressure chronic ulcer of right ankle with fat layer exposed; S90.521A Blister (nonthermal), right ankle, initial encounter; E11.36 Type 2 diabetes mellitus with diabetic cataract; E66.01 Morbid (severe) obesity due to excess calories; E78.5 Hyperlipidemia, unspecified; I10 Essential (primary) hypertension; M13.871 Other specified arthritis, right ankle and foot; Z79.82 Long term (current) use of aspirin; Z79.84 Long term (current) use of oral hypoglycemic drugs; Z68.41 Body mass index [BMI] 40.0-44.9, adult; X58.XXXA Exposure to other specified factors, initial encounter; Y93.89 Activity, other specified; Y92.89 Other specified places as the place of occurrence of the external cause; Y99.8 Other external cause status; Y83.8 Other surgical procedures as the cause of abnormal reaction of the patient, or of later complication, without mention of misadventure at the time of the procedure

== ENCOUNTER 2021-02-09 11:05 | Inpatient (IN) | payer BC, OTHER ==
[~2021-02-09] VITALS: Ht 157.5 cm; Wt 103.0 kg
[~2021-02-09 11:05] MED LIST changes: -LIPITOR 20 MG T20 M1 PO; +LIPITOR40 MG PO
[2021-02-09 12:18] LABS: CALCIUM 8.9 mg/dL (8.5-10.1); CREATININE 1.1 mg/dL (0.6-1.0)
[2021-02-09 12:29] VITALS: BP 166/78
[2021-02-09 16:58] VITALS: BP 160/73
[2021-02-09 17:17] VITALS: BP 153/71
[2021-02-09 17:20] VITALS: BP 142/64
[2021-02-09 17:49] VITALS: BP 147/69
--- NOTE | 2021-02-09 18:03 | NUR ---
ASSUMED CARE OF PT AT 1650 THIS AFTERNOON. PT WAS XFERRED FROM SURGERY FOR DRAINING AND DEBRIED OF NON HEALING WOUND ON RIGHT ANKLE. PT IS A/OX4 SKIN INTACT WITH RIGHT ANKLE WRAPPED IN DENICE BANDADGE AND CDI. CR<3SEC X4. EYES PERRLA, LUNG SOUNDS ARE CLEAR BILAT IN ALL RUIZ. O2 SAT WAS LOW DURING RECOVERY SO PT WAS PLACED ON NC @ 2L/H. DROPPED O2 TO 0 L TO SEE IF OXYGEN SAT WILL DROP. ABD SOFT NONTENDER WITH ACTIVE BOWEL SOUNDS. IV IN LEFT HAND SL. ASSESSMENTS OTHERWISE UNREMARKABLE. CALL LIGHT AND OTHER NEEDS ARE PLACED IN REACH. REVIEWED AND WAITING FOR HOME MEDS TO BE PLACED IN [facility]. VSS, MEDS AND OTHER X SCHEDULED.
[2021-02-09 19:49] VITALS: BP 143/76
[2021-02-09 20:49] LABS: HEMOGLOBIN 7.8 gm/dL (12.0-15.0); MCHC 32.6 g/dL (28.0-37.0); MCV 85.7 fL (80.0-100.0); RBC 2.79 mil/uL (4.20-5.00); RDW 17.9 % (10.5-14.5); WBC 8.5 thou/uL (4.0-11.0)
--- NOTE | 2021-02-10 03:15 | NUR ---
PT ALERT ANF ORIENTED. S/P RIGHT ANKLE DEBRIDEMENT. POST OP DRSG C/D/I. TOES ON RIGHT FOOT WITH GOOD CSM. PT ABLE TO GET UP WITH ASSIST X 1 TO THE BSC-VOIDING WELL. AFEBRILE. DENIES PAIN SO FAR-HAS NOT RECEVED ANY PAIN MEDS.
[2021-02-10 04:23] LABS: HEMATOCRIT 22.1 % (37.0-47.0); HEMOGLOBIN 7.2 gm/dL (12.0-15.0)
[2021-02-10 04:35] LABS: POTASSIUM 4.1 mmol/L (3.5-5.1)
[2021-02-10 07:24] VITALS: BP 145/68
--- NOTE | 2021-02-10 12:34 | NUR ---
ASSUMED PT CARE THIS AM. PT IS ALERT & ORIENTED X4. PT HAS IV SITE ON R HAND 20 GAUGE SALINE LOCKED. PT TOLERATED DIET AND MEDICATION WELL. PT IS ACCUCHECK ACHS. PT ON ROOM AIR. PT HAS EDEMA ON BILATERAL LE. PT DENIES PAIN, NAUSEA AND VOMITING. PT WILL HAVE I&D ON FRIDAY. NOTIFIED DR ABOUT HGB. PT ON THE BED EATING, BED ON THE LOWEST POSITION, SIDE RAILS UP, CALL LIGHT WITHIN REACH. WILL CONTINUE TO MONITOR PT. FOLLOW POC.
[2021-02-10 16:02] LABS: CALCIUM 8.3 mg/dL (8.5-10.1); CREATININE 1.4 mg/dL (0.6-1.0); POTASSIUM 4.3 mmol/L (3.5-5.1)
[2021-02-10 16:12] VITALS: BP 100/54
[2021-02-10 19:14] VITALS: BP 138/70
[2021-02-10 20:39] LABS: CALCIUM 8.6 mg/dL (8.5-10.1); CREATININE 1.4 mg/dL (0.6-1.0); POTASSIUM 4.5 mmol/L (3.5-5.1)
[2021-02-11 02:10] VITALS: BP 141/79
[2021-02-11 04:59] LABS: BASOPHILS 0.3 % (0.0-2.0); EOSINOPHILS 1.8 % (0.0-3.0); HEMATOCRIT 21.1 % (37.0-47.0); LYMPHOCYTES 15.2 % (24.0-44.0); MCH 28.3 pg (26.0-34.0); MCHC 33.1 g/dL (28.0-37.0); MCV 85.7 fL (80.0-100.0); MONOCYTES 3.4 % (1.0-8.0); PLATELET COUNT 484 thou/uL (150-400); POLYS 79.3 % (36.0-66.0); RBC 2.47 mil/uL (4.20-5.00); RDW 18.7 % (10.5-14.5); WBC 8.8 thou/uL (4.0-11.0)
[2021-02-11 05:13] LABS: ALBUMIN 2.4 g/dL (3.4-5.0); CALCIUM 8.4 mg/dL (8.5-10.1); CREATININE 1.3 mg/dL (0.6-1.0); POTASSIUM 4.1 mmol/L (3.5-5.1); TOTAL BILIRUBIN 0.3 mg/dL (0.2-1.0); TOTAL PROTEIN 7.7 g/dL (6.4-8.2)
--- NOTE | 2021-02-11 06:24 | NUR ---
Pt. rested quietly at intervals during the night when checked on during frequent rounds. She offers no c/o pain. Up to the bedside comode with assist of one. Bed alarm is on.
[2021-02-11 07:25] VITALS: BP 155/86
[2021-02-11 12:30] VITALS: BP 167/81; BP 176/93
--- NOTE | 2021-02-11 13:50 | NUR ---
ASSUMED PT CARE THIS AM. PT IS ALERT & ORIENTED X4. PT HAS IV SITE ON R HAND 20 GAUGE. PT IS ON ROOM AIR. PT IS UP WITH ASSIST X1 AND USES BSC. LAST BM WAS TODAY. PT IS ACCUCHECK ACHS. CONTROLLED BG THIS AFTERNOON AND NOT INDICATED FOR INSULIN. CONSULTED GI THIS AFTERNOON PER DR ORDERED. PT BILATERAL LE EDEMA NOTED BUT MORE SWOLLEN ON RLE. HGB WAS [address] PT TOLERATED MEDICATION AND DIET WELL. CURRENTLY TRANSFUSING 1 PACKED RBC. PT ON THE BED, BED ON THE LOWEST POSITION, SIDE RAILS UP, CALL LIGHT WITHIN REACH. WILL CONTINUE TO MONITOR PT. FOLLOW POC.
[2021-02-11 15:32] VITALS: BP 167/81
[2021-02-11 17:42] LABS: HEMATOCRIT 25.7 % (37.0-47.0); HEMOGLOBIN 8.4 gm/dL (12.0-15.0)
[2021-02-11 20:36] VITALS: BP 160/61
--- NOTE | 2021-02-12 04:59 | NUR ---
PATIENT HAS BEEN NPO SINCE MIDNIGHT. RIGHT ANKLE DRESSING IS C/D/I. PATIENT HAD NO BM FOR OCCOLT STOOL THIS SHIFT. PATIENT USES A BEDSIDE COMMODE.FALL PRECAUTION IN PLACE. PATIENT IN BED ASLEEP AT THIS TIME BREATHING REGULAR AND UNLABOURED.
[2021-02-12 05:49] LABS: HEMATOCRIT 28.1 % (37.0-47.0); HEMOGLOBIN 9.1 gm/dL (12.0-15.0); MCH 27.8 pg (26.0-34.0); MCHC 32.3 g/dL (28.0-37.0); MCV 86.2 fL (80.0-100.0); RBC 3.26 mil/uL (4.20-5.00); WBC 8.4 thou/uL (4.0-11.0)
[2021-02-12 06:02] LABS: CALCIUM 8.8 mg/dL (8.5-10.1); CREATININE 1.2 mg/dL (0.6-1.0); POTASSIUM 4.1 mmol/L (3.5-5.1)
[2021-02-12 07:35] VITALS: BP 172/90
--- NOTE | 2021-02-12 09:05 | 2DMMODE ---
[facility] [place] [address] 2 D/M-MODE ECHOCARDIOGRAM Name: BEKAH GARCIA Room #: 458-P ADM IN M.R.#: [id number] Admission: 02/09/21 Attend Phys: Tyler Cabral MD Discharge: Date of : 57 Report #: [id number] THIS REPORT FOR: cc: FELA - No family physician/PCP FAM - No family physician/PCP Gil Blackman MD ~ APPROVED REPORT Study performed: 02/12/2021 08:17:23 EXAM: Comprehensive 2D, Doppler, and color-flow Echocardiogram Patient Location: Bedside Room #: 458 Status: routine BSA: 2.02 HR: 81 bpm BP: 160/61 mmHg Indications Edema. CHF. 2D Dimensions RVDd: 39.78 mm IVSd: 11.00 (7-11mm) LVOT Diam: 19.00 (18-24mm) LVDd: 53.00 mm PWd: 11.00 (7-11mm) LVDs: 40.72 (25-40mm) Left Atrium: 35.72 (27-40mm) Aortic Root: 29.34 mm Volumes Left Atrial Volume (Systole) Single Plane 4CH: 62.59 mL Single Plane 2CH: 69.83 mL LA ESV Index: 34.00 mL/m2 Aortic Valve AoV Peak Ant.: 1.40 m/s AO Peak Gr.: 7.84 mmHg LVOT Max P.11 mmHg LVOT Max V: 0.88 m/s [place] Vmax: 1.72 cm2 Mitral Valve E/A Ratio: 0.8 MV Decel. Time: 109.16 ms [facility] [address] [place] [address] 2 D/M-MODE ECHOCARDIOGRAM Name: BEKAH GARCIA Room #: 458-P [facility] IN ..#: [id number] Admission: 02/09/21 Attend Phys: Tyler Cabral Discharge: Date of : 57 Report #: [id number] MV E Max Ant.: 1.00 m/s MV A Ant.: 1.30 m/s MV PHT: 31.66 ms IVRT: 126.87 ms Pulmonary Valve PV Peak Ant.: 0.86 m/s PV Peak Gr.: 2.99 mmHg Pulmonary Vein P Vein S: 0.29 m/s P Vein A: 0.35 m/s P Vein D: 0.42 m/s P Vein A Dur.: 114.2 msec P Vein S/D Ratio: 0.69 Tricuspid Valve TR Peak Ant.: 3.49 m/s RAP Estimate: 15.00 mmHg TR Peak Gr.: 49.00 mmHg PA Pressure: 64.00 mmHg Left Ventricle The left ventricle is normal size. Regional wall motion abnormalities are noted. There is normal left ventricular wall thickness. Left ventricular systolic function is moderately decreased. LVEF is 35%. Mild diastolic dysfunction is present. Right Ventricle The right ventricle is normal size. The right ventricular systolic function is normal. Right ventricular systolic function could not be assessed. Atria Left atrium is at the upper limits of normal. The right atrium size is normal. Aortic Valve The aortic valve is normal in structure. Trace aortic regurgitation. There is no aortic valvular stenosis. Mitral Valve Mitral valve leaflets are mildly thickened. Mild mitral annular calcification. Mild mitral regurgitation. Tricuspid Valve The tricuspid valve is normal in structure. Mild tricuspid regurgitation. Estimated PAP is 60-65mmHg. Pulmonic Valve [facility] [address] [place] [address] 2 D/M-MODE ECHOCARDIOGRAM Name: BEKAH GARCIA Room #: 458-P [facility] IN M.R.#: [id number] Admission: 02/09/21 Attend Phys: Tyler Cabral Discharge: Date of : 57 Report #: [id number] Pulmonic valve is not well visualized. Great Vessels The aortic root is normal in size. IVC is dilated and collapses <50% with inspiration. Pericardium There is no pericardial effusion. Right plerual effusioh. <Conclusion> The left ventricle is normal size. LVEF is 35%. Regional wall motion abnormalities are noted. The right ventricle is normal size. Left atrium is at the upper limits of normal. The aortic valve is normal in structure. Trace aortic regurgitation. Mitral valve leaflets are mildly thickened. Mild mitral annular calcification. Mild mitral regurgitation. The tricuspid valve is normal in structure. Mild tricuspid regurgitation. Estimated PAP is 60-65mmHg. The aortic root is normal in size. There is no pericardial effusion. Right plerual effusioh. <ELECTRONICALLY SIGNED> By: Gil Blackman MD 02/12/21903 3 3 Gil Blackman MD /INF
--- NOTE | 2021-02-12 13:41 | O ---
[facility] [place] [address] OPERATIVE REPORT Name: BEKAH GARCIA Room #: 458-P ADM IN M.R.#: [id number] Admission: 02/09/21 Attend Phys: Tyler Cabral MD Discharge: Date of : 57 Report #: [id number] THIS REPORT FOR: cc: FELA - Erin family physician/PCP FELA - No family physician/PCP Tyler Cabral MD ~ DOC #: [id number] Tyler Cabral MD DATE OF SERVICE: 02/09/2021 PREOPERATIVE DIAGNOSIS: Right ankle septic arthritis. POSTOPERATIVE DIAGNOSIS: Right ankle septic arthritis. PROCEDURE: Septic ankle irrigation and debridement, right ankle. SURGEON: Tyler Cabral. ANESTHESIA: General. ESTIMATED BLOOD LOSS: Minimal. No drains. TOURNIQUET TIME: 30 minutes. DESCRIPTION OF PROCEDURE: The patient was brought to the operating room where she was placed under general anesthesia. Once under adequate general anesthesia, her right lower extremity was prepped and draped in a sterile manner. The extremity was elevated and a tourniquet placed to 300 mmHg. An elliptical incision about the medial abscess was then made with dissection carried sharply down to the bone at the anterior distal tibia. Exposure was then made to enter the ankle joint. Once entered, cultures were taken. Also, medial malleolar bone cultures were taken. The joint was then irrigated copiously with normal saline through the pulsatile lavage. Similarly, an elliptical incision was made about the lateral wound at the anterior distal fibula. This was dissected sharply down to the bone and exposure was made of the joint there as well. Repeat irrigation through the ankle joint, both medially and laterally was then achieved with the normal saline pulsatile lavage. A rongeur was utilized to remove any necrotic tissues. The wound was irrigated copiously. The wounds were then dressed with a wet to dry dressing with normal saline and gauze followed by Kerlix and an Maximilian bandage. Tourniquet was let down at approximately 30 minutes. Toes were pink and warm. Good capillary refill. There were no complications from the procedure. The patient tolerated the procedure well and was to the recovery room without incident. [address] [address] OPERATIVE REPORT Name: BEKAH GARCIA Room #: 458-P [facility] IN .R.#: [id number] Admission: 02/09/21 Attend Phys: Tyler Cabral MD Discharge: Date of : 57 Report #: [id number] MD MARIO Blackwood/YAMILETH <ELECTRONICALLY SIGNED> By: Tyler Cabral MD 02/12/21 1341 1239 1308 Tyler Cabral MD /nt
[2021-02-12 17:06] VITALS: BP 152/85
[2021-02-12 19:58] VITALS: BP 148/76
[2021-02-13 00:26] VITALS: BP 148/71
--- NOTE | 2021-02-13 03:43 | NUR ---
ASSESSED AT START OF SHIFT 1900. PT A&OX4. PT HAD I&D OF RT FOOT DURING THE DAY. FOOT DRESSING WRAPPED NO DRAINAGE NOTED. PT UP WITH ASSISTX1 TO THE BSC. IV INTACT AND ABX GIVEN. DENIES PAIN ON ASSESMENT. BSG CHECKED AND INSULIN GIVEN. PT DENIES N/V. PT ON RA SATS 95%. FALL PREC IN PLACE AND CALL LIGHT AT REACH WILL CONT TO MONITOR.
[2021-02-13 05:13] LABS: HEMATOCRIT 29.1 % (37.0-47.0); HEMOGLOBIN 9.6 gm/dL (12.0-15.0)
[2021-02-13 05:36] LABS: POTASSIUM 4.6 mmol/L (3.5-5.1)
[2021-02-13 07:30] VITALS: BP 156/95
--- NOTE | 2021-02-13 12:14 | O ---
[facility] [place] [address] OPERATIVE REPORT Name: BEKAH GARCIA Room #: 442-P ADM IN M.R.#: [id number] Admission: 02/09/21 Attend Phys: Tyler Cabral MD Discharge: Date of : 57 Report #: [id number] THIS REPORT FOR: cc: FELA - No family physician/PCP FELA - No family physician/PCP Tyler Cabral MD ~ DOC #: [id number] Tyler Cabral MD DATE OF SERVICE: 02/12/2021 PREOPERATIVE DIAGNOSIS: Right ankle septic arthritis. POSTOPERATIVE DIAGNOSIS: Right ankle septic arthritis. PROCEDURE: Right ankle irrigation and debridement. SURGEON: Tyler Cabral MD ASSISTANT BUSINESS MANAGER: None. ANESTHESIA: General. ESTIMATED BLOOD LOSS: 5 mL. DRAIN: One Hemovac drain was placed. COMPLICATIONS: There were no complications. DESCRIPTION OF PROCEDURE: The patient was brought to the operating room, where she was placed under general anesthesia. Once under adequate general anesthesia, her right lower extremity was prepped and draped in a sterile manner. The extremity was elevated and tourniquet placed to 300 mmHg. The patient's previous wounds which were open were utilized to medially enter the tibiotalar joint, and pulsatile lavage was used there as well as laterally with normal saline solution to irrigate the wound. There did not appear to be any purulence noted today. The wounds were then attempted closure medially with 2-0 nylon suture and laterally as well. She still had approximately 5 cm open laterally over the fibula and medially as well over the medial malleolus. These wounds were then dressed with a wet-to-dry sterile soft compressive dressing. Tourniquet was let down at approximately 20 minutes. Toes were pink and warm with good capillary refill. There were no complications from the procedure. The patient tolerated the procedure well and was to the recovery room without incident. MD MARIO Blackwood/DONNA/EMIL [address] [address] OPERATIVE REPORT Name: BEKAH GARCIA Room #: 442-P [facility] IN ..#: [id number] Admission: 02/09/21 Attend Phys: Tyler Cabral MD Discharge: Date of : 57 Report #: [id number] <ELECTRONICALLY SIGNED> By: Tyler Cabral MD 02/13/21 1214 1243 1309 Tyler Cabral MD /nt
--- NOTE | 2021-02-13 13:48 | NUR ---
ASSUMED PT CARE THIS AM. PATIENT A&OX4, ABLE TO MAKE NEEDS KNOWN. PATIENT HAS A DRESSING ON THE RIGHT ANKLE THAT IS DRY AND INTACT. HEMOVAC CAME OUT THIS AM, DR. BLAS AWARE. PATIENT REMAINS CONTINENT, UP TO BEDSIDE COMMODE WHEN NEEDED. PATIENT PLACED IN CONTACT PRECAUTIONS FOR MRSA IN THE RIGHT ANKLE. FALL PRECAUTIONS ARE IN PLACE, CALL LIGHT WITHIN REACH.
--- NOTE | 2021-02-13 14:12 | NUR ---
ASSESSMENT: CM REVIEWED CHART AND SPOKE WITH PATIENT. PT IS ALERT AND ORIENTED X4. PT IS S/P I&D OF RIGHT ANKLE. PT IS CURRENTLY ON IV ANBX. ORTHO IS FOLLOWING PT WELL ID. PT REPORTS LIVING IN A HOUSE WITH HER DAUGHTER. PT STATES HAVING ABOUT 4 STEPS WITH HANDRAIL TO ENTER THE HOME AND NO ADDITIONAL STEPS SHE HAS TO USE ONCE INSIDE. PT STATING SHE HAS A CANE AND A WALKER AT HOME. PT ALSO HAS A KNEE SCOOTER. PT REPORTS HAVING [facility] IN THE PAST AND USED [facility] FOR IV ANBX. PT REPORTS NOT HAVING HH FOR A WHILE. CM DISCUSSED ROLE AND PT STATING IF SHE NEEDS HH AGAIN [facility] WONDERUL AND PREFERS THEM. CM FAXED REFERRAL PATIENT WILL LIKELY NEED WOUND CARE. CM WILL CONTINUE TO FOLLOW TO ASSIST NEEDED.
[2021-02-13 15:58] VITALS: BP 137/67
[2021-02-13 19:19] VITALS: BP 123/56
--- NOTE | 2021-02-14 00:34 | NUR ---
ASESSED AT START OF SHIFT. PT A&O4 REQUESTED FOR TYELNOL FOR RT FOOT. DRESSING INTACT NO DRAINAGE. PT UP WITH ASSISTX1 TO THE BSC. BSC CHECKED AND INSULIN PROVIDED. NIGHT TIME SNACK GIVEN. IV INTACT AND SALINE LOCK. FALL PREC IN PLACE AND CALL LIGHT AT REACH. BLE ELEVATED. WILL CONT TO MONITOR.
[2021-02-14 04:20] VITALS: BP 142/69
[2021-02-14 09:11] VITALS: BP 167/92
--- NOTE | 2021-02-14 11:00 | NUR ---
Assumed care of pt at 0700. Pt a&ox4. Denies pain. Dressing c/d/i. PICC line to be inserted today. Consent signed. BLE elevated. 1x assist to bedside commode. Call light within reach. Fall precautions in place. Will continue to monitor.
--- NOTE | 2021-02-14 13:32 | NUR ---
ON-GOING ASSESSMENT: CM REVIEWED CHART AND SPOKE WITH PATIENT WELL ATTENDING. PT IS NEEDING HOME IV ANBX ARRANGED. [facility] IS ALREADY FOLLOWING FOR HH ORDERS AND NOTIFIED THAT PT WILL BE GOING HOME ON IV ANBX. BRET SPOKE WITH CINDY WHO REPORTS THEY CANNOT SEE PATIENT UNTIL 02/15. CM SPOKE WITH PATIENT AND DISCUSSED HOME INFUSION AND SHE PREFERS TO USE [facility] SHE HAS USED THEM PREVIOUSLY. CM FAXED REFERRAL TO [facility] AND NOTIFIED LIAANNETTE QUINTANILLA. BENEFITS WERE RAN AND UNDER PATIENTS CURRENT PREFERRED CARE BLUE SHE IS COVERED AT 100 PERCENT. STARTING February PATIENT WILL HAVE MEDICARE. CM NOTIFIED LIASON FROM [facility] AND SHE REPORTS THEY CAN NOT VERIFY HER MEDICARE INFUSION BENEFITS UNTIL February WHEN IT IS ACTIVE AND PT MAY HAVE A COPAY FOR HOME. CM NOTIFIED PATIENT. CM SPOKE WITH [facility] WHO REPORTS PATIENT DECLINED BEDSIDE TEACHING SHE HAS HAD HOME INFUSION PRIOR WITH THE SAME MEDICATION AND FEELS COMFORTABLE DOING IT HERSELF WITHOUT INSTRUCTION. PT REPORTED HER DAUGHTER FEELS COMFORTABLE WELL AND DECLINED TEACHING. FOR A BACK UP PLAN IF PATIENT HAS A LARGE COPAY STARTING February CM CONTACTED [facility] AND SPOKE WITH SADA IN THE INFUSION CLINIC [place] [place] IN [facility]ED SCHEDULING ([phone]) THAT STATED PT HAS BEEN THERE BEFORE FOR INFUSION AND THAT SHE COULD COME THERE IF NEEDED. CM NOTIFIED PATIENT AND IN[facility] LIASON [facility]. PT STATING SHE DID NOT FEEL COMFORTABLE GOING HOME TODAY AND DUE TO HH NOT BEING ABLE TO SEE HER UNTIL 02/16 PT WILL DISCHARGE TOMORROW. PLANS ARE FOR PATIENT TO DISCHARGE HOME TOMORROW WITH [facility] AND [facility] FOR DAPTO 750MG IV /DAILY. CM FAXED CURRENT ORDERS TO [facility]. CM SPOKE WITH PATIENT AND SHE IS AGREEABLE WITH PLANS BUT STATING SHE WILL NOT HAVE TRANSPORTATION HOME UNTIL FRIDAY. SHE STATES HER LIVES WITH HER BUT CANNOT COME GET HER DUE TO MEETINGS AND WILL NEED TRANSPORTATION HOME. BRET SPOKE WITH CM DIRECTOR AND APPROVAL WAS GIVEN TO ARRANGE WHEELCHAIR VAN [facility]. CM CONTACTED [facility] AND ARRANGED TENATIVE PICKUP TIME FOR 02/15 AT 3PM PER PATIENTS REQUEST. [facility] AND [facility]ON NOTIFIED. ATTENDING NOTIFIED THAT PLAN IS TO DISCHARGE HOME TOMORROW. PICC LINE PLACED TODAY. CM WILL CONTINUE TO FOLLOW TO ASSIST NEEDED.
[2021-02-14 13:46] VITALS: BP 167/92
[2021-02-14 16:49] VITALS: BP 145/79
[2021-02-14 20:15] VITALS: BP 127/55
--- NOTE | 2021-02-15 03:09 | NUR ---
ASSUMED CARE TO PT AT 1900. PT IS A/O X4 AND IS UP WITH SBA WITH WALKER AND GB TO BSC. DENIES C/O PAIN OR DISCOMFORT. DRSG TO ANKLE IS C/DI AND IS ELEVATED ON A PILLOW. PT CALLS OUT APPROPRIATELY. MEDICATIONS GIVEN PER MAR. CALL LIGHT IS WITHIN REACH.
[2021-02-15 08:10] VITALS: BP 132/66
--- NOTE | 2021-02-15 10:06 | NUR ---
Assumed care of pt at 0700. Pt a&ox4. Denies pain. Dressing c/d/i. PICC line in place. Pt will be discharged to home with home infusions today. Antibiotic to be delivered to pt's room prior to discharge. Call light within reach. Fall precautions in place. Will continue to monitor.
--- NOTE | 2021-02-15 13:54 | NUR ---
on-going assessment: CM REVIEWED CHART AND SPOKE WITH PATIENT. PLANS ARE FOR PATIENT TO DISCHARGE HOME TODAY WITH HOME HEALTH AND IV ANBX. PICC LINE WAS PLACED YESTERDAY. CM FAXED PICC PLACEMENT CONFIRMATION TO [facility] WHO IS SUPPLYING HER IV ANBX. CM FAXED DISCHARE ORDERS TO [facility] AND NOTIFIED [facility] THEIR LIASON WHO CONFIRMS THEY RECEIVED ALL ORDERS. PTS HOME IV ANBX WAS DELIVERED TO THE HOSPITAL AND PT WILL TAKE HOME AT DISCHARGE. CM ALSO FAXED DISCHARGE ORDERS TO [facility] AND SPOKE WITH [facility]ADE AND CONFIRMED THEY RECEIVED THEM. CM CONTACTED [facility] (WHICH ARRANGEMENTS WERE MADE YESTERDAY) TO CONFIRM TRANSPORTATION AND THEY WILL ARRAIVE AROUND 1500. PATIENT IS AWARE AND AGREEABLE WITH PLAN. [facility] WAS APPROVED BY CM DIRECTOR PT DID NOT HAVE A RIDE HOME. PT REPORTS NO FURTHER QUESTIONS FROM CM PRIOR TO DISCHARGE.
[2021-02-15 14:28] VITALS: BP 167/92
--- NOTE | 2021-02-16 10:02 | HC ---
[facility] [place] [address] CONSULTATION Name: BEKAH GARCIA Room #: 442-P [facility] IN M.R.#: [id number] Admission: 02/09/21 Attend Phys: Tyler Cabral MD Discharge: 02/15/21 Date of : 57 Report #: [id number] THIS REPORT FOR: cc: FELA - No family physician/PCP FAM - No family physician/PCP Chad Cordero MD ~ DOC #: [id number] Chad Cordero MD DATE OF SERVICE: 02/13/2021 CHIEF COMPLAINT: Surgical wounds to the right ankle. HISTORY OF PRESENT ILLNESS: This is a 65-year-old female patient who was admitted to the hospital for further washout of her right ankle. She sustained an ankle fracture in 04/2020, which was apparently a closed fracture; however, she slipped and fell a couple of weeks later and underwent open reduction, internal fixation, developed a surgical site infection. On 11/02/2020, hardware was removed. She was continued on intravenous antibiotic therapy and had ongoing wound care with local improvement; however, she developed increasing swelling and an elevation of her inflammatory markers after completing a full course antibiotic therapy and she has been admitted and has undergone incision and debridement and irrigation of the ankle. I have been asked to see her with regard to ongoing wound care. PAST MEDICAL HISTORY: Positive for type 2 diabetes mellitus, the ankle fracture as detailed above, hypertension, hyperlipidemia. ALLERGIES: PENICILLIN. MEDICATIONS: Include aspirin, atorvastatin, probiotic, cyanocobalamin, ergocalciferol, ferrous sulfate, glyburide, lisinopril, loratadine, pioglitazone. FAMILY HISTORY: Noncontributory. SOCIAL HISTORY: Negative for alcohol or tobacco use. REVIEW OF SYSTEMS: CONSTITUTIONAL: The patient denies fever, chills or weight loss. NEUROLOGICAL: The patient denies focal weakness, numbness or tingling. EYES: The patient denies visual changes, redness, drainage. ENT: The patient denies earache, nasal drainage, sore throat. CARDIOVASCULAR: The patient denies chest pain, palpitation, diaphoresis. PULMONARY: Denies cough or shortness of breath. GASTROINTESTINAL: Denies nausea, vomiting, diarrhea, abdominal pain. ORTHOPEDIC: The patient denies any pain in her ankle, but notes the surgical [address] [address] CONSULTATION Name: BEKAH GARCIA Room #: 442-[facility] IN M.R.#: [id number] Admission: 02/09/21 Attend Phys: Tyler Cabral MD Discharge: 02/15/21 Date of : 57 Report #: [id number] wounds present. Others systems on a 14-point review of systems are negative. PHYSICAL EXAMINATION: VITAL SIGNS: At this time include temperature 36.3, pulse 75, respiratory rate of 18, blood pressure 137/67. GENERAL: This is a well-developed female. The patient appears to be in minimal distress. HEENT: Head normocephalic. Nose and throat are clear. NECK: Supple. LUNGS: Clear. ABDOMEN: Soft. Bowel sounds present. EXTREMITIES: Examination of the lower extremities demonstrate surgical wounds, both medial and lateral portion of the right ankle. They are healthy, clean, granulating. No overt evidence of infection except for some mild edema, but minimal erythema and no drainage. NEUROLOGIC: The patient is alert, oriented, appropriate. LABORATORY STUDIES: Include white blood cell count 8.4 with a hemoglobin of 9.1, sodium 138, potassium 4.6, chloride 104, CO2 of 25. CRP is 102.8. CLINICAL IMPRESSION: 1. Surgical wounds to the right medial and lateral ankle following incision and drainage and washout of her right ankle. 2. Type 2 diabetes mellitus. 3. History of ankle fracture in 04/2020. RECOMMENDATIONS: At this point in time, the patient is being managed with intravenous antibiotics by Dr. Marshall. We will recommend topical silver alginate, ABD, Kerlix and Maximilian wrap; for edema, elevation of the leg. Will continue to follow up with local wound care. She will need ongoing aggressive nutritional support to maximize wound healing and maintain glycemic control. I appreciate being asked to see her in consultation. Chad Cordero MD JRA/HEM <ELECTRONICALLY SIGNED> By: Chad Cordero MD 02/16/21 1002 1753 0015 Chad Cordero MD /nt
== END 2021-02-15 16:01 | disposition home health service (06) | DRG 500 ==
LOC: OR 11:05 → 4W 16:51 → 4S 02-12 14:43
PROVIDERS: Hospitalist; Internal Medicine; Specialist; ADMIT Orthopaedic Surgery Foot and Ankle Surgery; ATTEND Orthopaedic Surgery Foot and Ankle Surgery
PROC: 0QDL0ZZ Extraction of Right Tarsal, Open Approach (ICD-10-PCS; 2021-02-09)
PROC: 30233N1 Transfusion of Nonautologous Red Blood Cells into Peripheral Vein, Percutaneous Approach (ICD-10-PCS; principal; 2021-02-11)
PROC: 3E1U38Z Irrigation of Joints using Irrigating Substance, Percutaneous Approach (ICD-10-PCS; 2021-02-12)
PROC: 05HY33Z Insertion of Infusion Device into Upper Vein, Percutaneous Approach (ICD-10-PCS; 2021-02-15)
DX: M00.9 Pyogenic arthritis, unspecified (principal); J96.01 Acute respiratory failure with hypoxia; E43 Unspecified severe protein-calorie malnutrition; N17.9 Acute kidney failure, unspecified; Z68.41 Body mass index [BMI] 40.0-44.9, adult; E78.5 Hyperlipidemia, unspecified; S91.001A Unspecified open wound, right ankle, initial encounter; Y93.89 Activity, other specified; E87.6 Hypokalemia; D64.9 Anemia, unspecified; I12.9 Hypertensive chronic kidney disease with stage 1 through stage 4 chronic kidney disease, or unspecified chronic kidney disease; N18.2 Chronic kidney disease, stage 2 (mild); Z20.822 Contact with and (suspected) exposure to COVID-19; E11.22 Type 2 diabetes mellitus with diabetic chronic kidney disease; R53.81 Other malaise; Z79.82 Long term (current) use of aspirin; Z79.899 Other long term (current) drug therapy; X58.XXXA Exposure to other specified factors, initial encounter; Y92.89 Other specified places as the place of occurrence of the external cause; Y99.8 Other external cause status; Z86.14 Personal history of Methicillin resistant Staphylococcus aureus infection; Z82.49 Family history of ischemic heart disease and other diseases of the circulatory system
CPT/HCPCS: 10047; 10102; 50010; 50101; 50386; 51647; 53078; 56525; 57091; 57103; 57181; 58589; 62110; 62900; 70005

== ENCOUNTER → 2021-03-06 | Outpatient (CLI) | payer OTHER, MEDICARE | LOC: HYPER 07:51 | PROVIDERS: ATTEND Specialist | DX: T81.49XD Infection following a procedure, other surgical site, subsequent encounter (principal); E11.622 Type 2 diabetes mellitus with other skin ulcer; L97.312 Non-pressure chronic ulcer of right ankle with fat layer exposed; L84 Corns and callosities; S90.521D Blister (nonthermal), right ankle, subsequent encounter; A49.02 Methicillin resistant Staphylococcus aureus infection, unspecified site; E11.36 Type 2 diabetes mellitus with diabetic cataract; E66.01 Morbid (severe) obesity due to excess calories; E78.5 Hyperlipidemia, unspecified; I10 Essential (primary) hypertension; M13.871 Other specified arthritis, right ankle and foot; Z79.82 Long term (current) use of aspirin; Z79.84 Long term (current) use of oral hypoglycemic drugs; Z68.41 Body mass index [BMI] 40.0-44.9, adult; X58.XXXD Exposure to other specified factors, subsequent encounter; Y83.8 Other surgical procedures as the cause of abnormal reaction of the patient, or of later complication, without mention of misadventure at the time of the procedure ==

== ENCOUNTER → 2021-03-22 | Outpatient (CLI) | payer OTHER, MEDICARE | LOC: HYPER 08:16 | PROVIDERS: ATTEND Emergency Medicine | DX: T81.49XD Infection following a procedure, other surgical site, subsequent encounter (principal); E11.622 Type 2 diabetes mellitus with other skin ulcer; L97.312 Non-pressure chronic ulcer of right ankle with fat layer exposed; L84 Corns and callosities; S90.521D Blister (nonthermal), right ankle, subsequent encounter; A49.02 Methicillin resistant Staphylococcus aureus infection, unspecified site; E11.36 Type 2 diabetes mellitus with diabetic cataract; E66.01 Morbid (severe) obesity due to excess calories; E78.5 Hyperlipidemia, unspecified; I10 Essential (primary) hypertension; M13.871 Other specified arthritis, right ankle and foot; Z79.82 Long term (current) use of aspirin; Z79.84 Long term (current) use of oral hypoglycemic drugs; Z68.41 Body mass index [BMI] 40.0-44.9, adult; X58.XXXD Exposure to other specified factors, subsequent encounter; Y83.8 Other surgical procedures as the cause of abnormal reaction of the patient, or of later complication, without mention of misadventure at the time of the procedure ==

== ENCOUNTER → 2021-04-05 | Outpatient (CLI) | payer OTHER, MEDICARE | LOC: HYPER 07:53 | PROVIDERS: ATTEND Emergency Medicine | DX: T81.49XD Infection following a procedure, other surgical site, subsequent encounter (principal); E11.622 Type 2 diabetes mellitus with other skin ulcer; L97.312 Non-pressure chronic ulcer of right ankle with fat layer exposed; L84 Corns and callosities; S90.521D Blister (nonthermal), right ankle, subsequent encounter; A49.02 Methicillin resistant Staphylococcus aureus infection, unspecified site; E11.36 Type 2 diabetes mellitus with diabetic cataract; E66.01 Morbid (severe) obesity due to excess calories; E78.5 Hyperlipidemia, unspecified; I10 Essential (primary) hypertension; M13.871 Other specified arthritis, right ankle and foot; Z79.82 Long term (current) use of aspirin; Z79.84 Long term (current) use of oral hypoglycemic drugs; Z68.41 Body mass index [BMI] 40.0-44.9, adult; X58.XXXD Exposure to other specified factors, subsequent encounter; Y83.8 Other surgical procedures as the cause of abnormal reaction of the patient, or of later complication, without mention of misadventure at the time of the procedure ==

== ENCOUNTER → 2021-04-19 | Outpatient (CLI) | payer OTHER, MEDICARE | LOC: HYPER 07:35 | PROVIDERS: ATTEND Emergency Medicine Emergency Medical Services | DX: T81.49XD Infection following a procedure, other surgical site, subsequent encounter (principal); E11.622 Type 2 diabetes mellitus with other skin ulcer; L97.312 Non-pressure chronic ulcer of right ankle with fat layer exposed; L84 Corns and callosities; S90.521D Blister (nonthermal), right ankle, subsequent encounter; A49.02 Methicillin resistant Staphylococcus aureus infection, unspecified site; E11.36 Type 2 diabetes mellitus with diabetic cataract; H26.9 Unspecified cataract; E66.01 Morbid (severe) obesity due to excess calories; E78.5 Hyperlipidemia, unspecified; I10 Essential (primary) hypertension; M13.871 Other specified arthritis, right ankle and foot; Z79.82 Long term (current) use of aspirin; Z79.84 Long term (current) use of oral hypoglycemic drugs; Z68.41 Body mass index [BMI] 40.0-44.9, adult; X58.XXXD Exposure to other specified factors, subsequent encounter; Y83.8 Other surgical procedures as the cause of abnormal reaction of the patient, or of later complication, without mention of misadventure at the time of the procedure ==

== ENCOUNTER → 2021-05-03 | Outpatient (CLI) | payer OTHER, MEDICARE | LOC: HYPER 07:51 | PROVIDERS: ATTEND Emergency Medicine | DX: T81.40XD Infection following a procedure, unspecified, subsequent encounter (principal); E11.622 Type 2 diabetes mellitus with other skin ulcer; L97.312 Non-pressure chronic ulcer of right ankle with fat layer exposed; S90.521D Blister (nonthermal), right ankle, subsequent encounter; E66.01 Morbid (severe) obesity due to excess calories; M13.871 Other specified arthritis, right ankle and foot; B95.62 Methicillin resistant Staphylococcus aureus infection as the cause of diseases classified elsewhere; I10 Essential (primary) hypertension; E78.5 Hyperlipidemia, unspecified; E11.36 Type 2 diabetes mellitus with diabetic cataract; Z68.41 Body mass index [BMI] 40.0-44.9, adult; Z79.82 Long term (current) use of aspirin; Z79.84 Long term (current) use of oral hypoglycemic drugs; Z79.899 Other long term (current) drug therapy; X58.XXXD Exposure to other specified factors, subsequent encounter; Y83.8 Other surgical procedures as the cause of abnormal reaction of the patient, or of later complication, without mention of misadventure at the time of the procedure ==

== ENCOUNTER → 2021-06-07 | Outpatient (CLI) | payer OTHER, MEDICARE | LOC: HYPER 08:41 | PROVIDERS: ATTEND Emergency Medicine | DX: T81.41XD Infection following a procedure, superficial incisional surgical site, subsequent encounter (principal); S90.521D Blister (nonthermal), right ankle, subsequent encounter; E11.622 Type 2 diabetes mellitus with other skin ulcer; L97.312 Non-pressure chronic ulcer of right ankle with fat layer exposed; B95.62 Methicillin resistant Staphylococcus aureus infection as the cause of diseases classified elsewhere; M13.871 Other specified arthritis, right ankle and foot; M00.871 Arthritis due to other bacteria, right ankle and foot; E11.36 Type 2 diabetes mellitus with diabetic cataract; E66.01 Morbid (severe) obesity due to excess calories; Z68.41 Body mass index [BMI] 40.0-44.9, adult; Z79.82 Long term (current) use of aspirin; Z79.84 Long term (current) use of oral hypoglycemic drugs; Z79.899 Other long term (current) drug therapy; X58.XXXD Exposure to other specified factors, subsequent encounter; Y83.8 Other surgical procedures as the cause of abnormal reaction of the patient, or of later complication, without mention of misadventure at the time of the procedure ==

== ENCOUNTER → 2021-07-19 | Outpatient (CLI) | payer OTHER, MEDICARE | LOC: HYPER 09:28 | PROVIDERS: ATTEND Emergency Medicine | DX: S80.822A Blister (nonthermal), left lower leg, initial encounter (principal); E11.622 Type 2 diabetes mellitus with other skin ulcer; L97.312 Non-pressure chronic ulcer of right ankle with fat layer exposed; M13.871 Other specified arthritis, right ankle and foot; B95.62 Methicillin resistant Staphylococcus aureus infection as the cause of diseases classified elsewhere; I10 Essential (primary) hypertension; E78.5 Hyperlipidemia, unspecified; E11.36 Type 2 diabetes mellitus with diabetic cataract; H26.9 Unspecified cataract; E66.01 Morbid (severe) obesity due to excess calories; Z68.41 Body mass index [BMI] 40.0-44.9, adult; Z79.84 Long term (current) use of oral hypoglycemic drugs; Z79.82 Long term (current) use of aspirin; Z79.899 Other long term (current) drug therapy; X58.XXXA Exposure to other specified factors, initial encounter; Y93.89 Activity, other specified; Y92.89 Other specified places as the place of occurrence of the external cause; Y99.8 Other external cause status ==

== ENCOUNTER → 2021-08-09 | Outpatient (CLI) | payer OTHER, MEDICARE | LOC: HYPER 09:50 | PROVIDERS: ATTEND Emergency Medicine | DX: T81.49XD Infection following a procedure, other surgical site, subsequent encounter (principal); E11.622 Type 2 diabetes mellitus with other skin ulcer; L97.312 Non-pressure chronic ulcer of right ankle with fat layer exposed; S80.822D Blister (nonthermal), left lower leg, subsequent encounter; M00.871 Arthritis due to other bacteria, right ankle and foot; B95.62 Methicillin resistant Staphylococcus aureus infection as the cause of diseases classified elsewhere; I10 Essential (primary) hypertension; E78.5 Hyperlipidemia, unspecified; E11.36 Type 2 diabetes mellitus with diabetic cataract; H26.9 Unspecified cataract; E66.01 Morbid (severe) obesity due to excess calories; Z68.41 Body mass index [BMI] 40.0-44.9, adult; Z79.82 Long term (current) use of aspirin; Z79.84 Long term (current) use of oral hypoglycemic drugs; Z79.899 Other long term (current) drug therapy; X58.XXXD Exposure to other specified factors, subsequent encounter; Y83.8 Other surgical procedures as the cause of abnormal reaction of the patient, or of later complication, without mention of misadventure at the time of the procedure ==